=== PATIENT | male | born 1935 | race Caucasian/White ===

== ENCOUNTER 2019-10-25 11:58 | Inpatient (IN) | payer OTHER ==
[~2019-10-25] VITALS: Ht 193 cm; Wt 89.8 kg
[2019-10-26] MEDS ORDERED: PHENYLEPHRINE HCL 10 MG/ML VIAL (NEOSYNEPHRINE) IV ONE (07:30)
[2019-10-26] MEDS ORDERED: POTASSIUM CHLORIDE 20 MEQ TAB.PRT.SR PO ONE (07:30)
[2019-10-26] MEDS ORDERED: WATER FOR IRRIGATION,STERILE 1,000 ML IRRIG.SOLN IR ONE (07:30)
[2019-10-26] MEDS ORDERED: NS 1000 ML IV.SOLN IV ONE ×2 (07:30→13:31)
[2019-10-26] MEDS ORDERED: PROPOFOL 200MG/ 20ML VIAL (DIPRIVAN) IV ONE ×2 (07:30→13:31)
--- NOTE | 2019-10-26 12:20 | NUR ---
Direct admit notes From home via ambulance accompanied by the healthcare representative , with a chief complaint of urine infection , alert oriented x3 hard of hearing , vitals sign within normal limit ,came in with ruby catheter, denies any pain , oriented to room , policy , safety/fall precaution initiated , needs attended.
[2019-10-26 12:43] VITALS: BP_SYST 126
[2019-10-26] MEDS ORDERED: PHEN100C4 PO (12:43)
[2019-10-26] MEDS ORDERED: ASPI-1155 PO (12:43)
[2019-10-26] MEDS ORDERED: XALEYE BOTH EYES (12:47)
--- NOTE | 2019-10-26 12:50 | NUR ---
Paged DR. Mederos for admission order., left a message
--- NOTE | 2019-10-26 13:25 | NUR ---
PAGED DR SANTILLAN FOR ORDERS [phone] S/W JEANETTE EXCHANGE
[2019-10-26] MEDS ORDERED: FLUCONAZOLE IV ONE (13:31)
[2019-10-26] MEDS ORDERED: NS IRRIG SOLN 1000 ML IR ONE (13:31)
[2019-10-26] MEDS ORDERED: CEFAZOLIN 2 GM IVPB PREMIX 50 ML IV ONE (13:31)
[2019-10-26] MEDS ORDERED: NS IV ONE (13:31)
--- NOTE | 2019-10-26 14:24 | NUR ---
IV PLACEMENT: # 22 gauge angiocath placed to LEFT FORE ARM. Use of asceptic technique. Opsite placed over site. Blood return noted. Flushed with 10 cc of normal saline. No evidence of infiltration noted. Patient tolerated WELL.
--- NOTE | 2019-10-26 15:03 | NUR ---
CONSULTATION PAGED/CALLED Reason for Consultation: [] RENAL FAILURE Person Who was Notified: [] BETINA Consulting Physician: [] DR TAYLOR MUSEUM EXHIBIT TECHNICIAN FOR DR CARROLL Senior Asic Engineer Specialty: [] NEPHROLOGY Ordering Physician: [] DR SANTILLAN
--- NOTE | 2019-10-26 15:06 | NUR ---
CONSULTATION PAGED/CALLED Reason for Consultation: [] UTI Person Who was Notified: [] JANINA Consulting Physician: [] DR MARK RODRIGUEZ [employer] Art Teacher Specialty: [] ID Ordering Physician: [] DR SANTILLAN
--- NOTE | 2019-10-26 15:07 | NUR ---
CONSULTATION PAGED/CALLED Reason for Consultation: [] BPH Person Who was Notified: [] JANINA Consulting Physician: [] DR ARMANI CHAMORRO Flight Test Engineer Specialty: [] UROLOGIST Ordering Physician: [] DR SANTILLAN
[2019-10-26 15:19] LABS: BASOPHILS % (AUTO) 0.7 % (0.0-2.0); EOSINOPHILS # (AUTO) 0.2 K/uL (0.0-0.4); EOSINOPHILS % (AUTO) 4.4 % (0.0-4.0); HEMOGLOBIN 13.4 g/dL (14.0-18.0); LYMPHOCYTES # (AUTO) 1.5 K/uL (1.0-5.5); LYMPHOCYTES % (AUTO) 27.5 % (20.5-51.5); MEAN CORPUSCULAR HEMOGLOBIN 34 pg (27-31); MEAN CORPUSCULAR HGB CONC 34 % (32-36); MEAN CORPUSCULAR VOLUME 101 fL (79.0-98.0); MONOCYTES # (AUTO) 0.3 K/uL (0.0-1.0); MONOCYTES % (AUTO) 5.4 % (1.7-9.3); NEUTROPHILS # (AUTO) 3.3 K/uL (1.8-7.7); PLATELET COUNT (AUTO) 210 K/uL (130-430); RED BLOOD CELL COUNT(AUTO) 3.95 MIL/uL (4.2-6.2); RED CELL DISTRIBUTION WIDTH 14.4 % (9.0-15.0); WHITE BLOOD COUNT (AUTO) 5.3 K/uL (4.8-10.8)
[2019-10-26 15:35] LABS: ALANINE AMINOTRANSFERASE 35 U/L (12-78); ALBUMIN 2.9 g/dL (3.4-4.8); ANION GAP 7 (5-15); ASPARTATE AMINOTRANSFERASE 24 U/L (10-37); CALCIUM 8.5 mg/dL (8.4-11.0); CHLORIDE 99 mmol/L (98-107); CREATININE 0.93 mg/dL (0.55-1.30); GLUCOSE 132 mg/dL (70-99); POTASSIUM 3.8 mmol/L (3.5-5.1); SODIUM SERUM 133 mmol/L (136-145); TOTAL BILIRUBIN 0.4 mg/dL (0.0-1.0); UREA NITROGEN, BLOOD 23 mg/dL (8-21)
[2019-10-26 15:45] VITALS: BP_SYST 126
[2019-10-26] MEDS: PHENYTOIN 100 MG CAPSULE PO SCH ×2 (15:57→20:42)
--- NOTE | 2019-10-26 16:23 | NUR ---
HANSEN CATH changed # 16 FR Hansen catheter with 10 cc bulb inserted with use of sterile technique. Bulb inflated with 10 cc sterile water. Immediate return of 10 cc of cloudy urine urine noted. Bedside drainage bag placed below level of bladder. Urine sample collected and sent to lab. Pt tolerated procedure well.
--- NOTE | 2019-10-26 16:53 | NUR ---
Seen and examined by the urologist DR. Beach.
[2019-10-26 17:33] LABS: BILIRUBIN,URINE NEGATIVE (NEGATIVE); BLOOD, URINE 3+ (NEGATIVE); CLARITY/URINE SL CLOUDY (CLEAR); COLOR,URINE YELLOW (YELLOW); GLUCOSE,URINE NEGATIVE (NEGATIVE); KETONES,URINE NEGATIVE (NEGATIVE); LEUKOCYTE ESTERASE ,URINE 3+ (NEGATIVE); NITRITE, URINE POSITIVE (NEGATIVE); PH,URINE 7.5 (5.0-8.0); PROTEIN URINE 2+ (NEGATIVE)
[2019-10-26 17:42] LABS: RBC,URINE 20-50 /HPF (0-3)
[2019-10-26 17:43] LABS: BACTERIA,URINE MODERATE /HPF (None Seen); MUCUS,URINE None Seen /LPF (None Seen); WBC,URINE 80-100 /HPF (0-3)
[2019-10-26] MEDS: LEVOFLOXACIN 250 MG/D5W 50 ML IV SCH (18:15)
--- NOTE | 2019-10-26 18:57 | NUR ---
Urinalysis completed ,Due antibiotic given with out adverse reaction.
--- NOTE | 2019-10-26 19:10 | NUR ---
initial notes: pt is on bed, alert, awake, oriented to his name and birthday, don't where he is. pt don't known the date. no pain. not distress, afebrile. vital sign are with in normal limit. room air. pt has saline lock to left forearm gauge 22-intact and patent. ruby catheter draing by gravity to yellow urine.- change today by day rn. no skin issue. client care specialist at bedside. explain plan of care. safety to pt's client care specialist. verbalized understanding. needs attended. call light in reach, side rails up. low bed position and lock, bed alarm on. will follow-up.
[2019-10-26 20:33] VITALS: BP_SYST 123
[2019-10-26] MEDS: LATANOPROST 2.5 ML DROPS (XALATAN) BOTH EYES SCH (20:43)
--- NOTE | 2019-10-26 21:25 | NUR ---
seen by dr. lozano at bedside.
--- NOTE | 2019-10-26 22:16 | NUR ---
pt is awake, alert. no distress. stable. needs attended. life care planner at bedside. will follow-up.
--- NOTE | 2019-10-27 | NUR ---
sleeping, comfortable. no pain. no sob. stable, safety on. bed alarm on. career development coordinator at bedside. will follow-up.
[2019-10-27 00:45] VITALS: BP_SYST 129
--- NOTE | 2019-10-27 02:30 | NUR ---
sleeping, no acute distress. no sign of pain. stable. youth care professional at bedside. will follow-up.
--- NOTE | 2019-10-27 04:30 | NUR ---
pt is awake. confused, no pain. not distress. check pt if soiled, pt is clean, reposition. needs attended. caregiver at bedside. padded rails up. bed alarm on. will follow-up
--- NOTE | 2019-10-27 06:00 | NUR ---
sleeping, no acute distress. no sign of pain. stable. safety on.personal care service provider at bedside. will follow-up.
--- NOTE | 2019-10-27 07:07 | NUR ---
closing: pt is awake, alert. confused. no pain. stable. iv lock intact. ruby catheter draining. resident care technician at the bedside. bedside report given to am rn.
[2019-10-27] MEDS: PHENYTOIN 100 MG CAPSULE PO SCH ×3 (08:15→20:32)
[2019-10-27] MEDS: ASPIRIN 81 MG TAB.CHEW PO SCH (08:15)
--- NOTE | 2019-10-27 08:15 | NUR ---
Patient awake/alert oriented x3 hard of hearing forgetful at times , urine output clear yellow with sediments,encouraged patient to increase oral fluid intake verbalized understanding.,needs attended.
[2019-10-27] MEDS: LEVOFLOXACIN 250 MG/D5W 50 ML IV SCH (08:16)
[2019-10-27 08:28] LABS: BASOPHILS % (AUTO) 0.9 % (0.0-2.0); EOSINOPHILS # (AUTO) 0.3 K/uL (0.0-0.4); EOSINOPHILS % (AUTO) 6.3 % (0.0-4.0); HEMATOCRIT 37.6 % (36-54); HEMOGLOBIN 12.8 g/dL (14.0-18.0); LYMPHOCYTES # (AUTO) 1.6 K/uL (1.0-5.5); LYMPHOCYTES % (AUTO) 29.9 % (20.5-51.5); MEAN CORPUSCULAR HEMOGLOBIN 34 pg (27-31); MEAN CORPUSCULAR HGB CONC 34 % (32-36); MEAN CORPUSCULAR VOLUME 101 fL (79.0-98.0); MONOCYTES # (AUTO) 0.4 K/uL (0.0-1.0); MONOCYTES % (AUTO) 7.3 % (1.7-9.3); NEUTROPHILS # (AUTO) 2.9 K/uL (1.8-7.7); NEUTROPHILS % (AUTO) 55.6 % (40.0-70.0); PLATELET COUNT (AUTO) 199 K/uL (130-430); RED BLOOD CELL COUNT(AUTO) 3.72 MIL/uL (4.2-6.2); RED CELL DISTRIBUTION WIDTH 14.2 % (9.0-15.0); WHITE BLOOD COUNT (AUTO) 5.3 K/uL (4.8-10.8)
[2019-10-27 08:43] LABS: ALANINE AMINOTRANSFERASE 25 U/L (12-78); ALBUMIN 2.5 g/dL (3.4-4.8); ANION GAP 5 (5-15); ASPARTATE AMINOTRANSFERASE 20 U/L (10-37); CALCIUM 8.1 mg/dL (8.4-11.0); CHLORIDE 101 mmol/L (98-107); GLUCOSE 111 mg/dL (70-99); POTASSIUM 4.1 mmol/L (3.5-5.1); SODIUM SERUM 134 mmol/L (136-145); TOTAL BILIRUBIN 0.5 mg/dL (0.0-1.0); UREA NITROGEN, BLOOD 19 mg/dL (8-21)
[2019-10-27 09:20] VITALS: BP_SYST 118
--- NOTE | 2019-10-27 09:48 | NUR ---
Nutrition Update Ethan Scale 18 noted. Pt admitted for complicated UTI Diet: regular, mechanical soft BMI: 24.1 kg/m2 RD to follow per nutrition care standards.
--- NOTE | 2019-10-27 11:06 | NUR ---
PATIENT RESTING: Patient resting quietly. No acute distress noted. Vital signs within normal range.
[2019-10-27 11:16] VITALS: BP_SYST 117
--- NOTE | 2019-10-27 14:30 | NUR ---
Patient repositioned by staff every 2 hours with pillow support., family at the bedside.
[2019-10-27 15:42] VITALS: BP_SYST 112
--- NOTE | 2019-10-27 19:15 | NUR ---
Endorsed patient to date night caregiver , patient very pleasant denies any discomfort.
--- NOTE | 2019-10-27 19:20 | NUR ---
OPENING NOTE RECEIVED CARE OF PT AND SBAR REPORT. PT IS AAOX2, PLEASANTLY CONFUSED, SITTING UP IN BED. PT HAS CAREGIVER AT BEDSIDE. BREATHING IS UNLABORED TO ROOM AIR. NO S/S OF ACUTE DISTRESS. PT DENIES PAIN OR DISCOMFORT. F/C IS INTACT AND DRAINING TO GRAVITY. PT ORIENTED TO USE OF CALL LIGHT AND ENCOURAGED TO CALL FOR ANY ASSISTANCE. SAFETY PRECAUTIONS ARE IN PLACE: BED IS LOCKED IN LOWEST POSITION, SIDE RAILS UP X3, CALL LIGHT IS WITH PT, BED ALARM IS ON. WILL MONITOR.
[2019-10-27 20:00] VITALS: BP_SYST 127
[2019-10-27] MEDS: LATANOPROST 2.5 ML DROPS (XALATAN) BOTH EYES SCH (20:32)
--- NOTE | 2019-10-27 20:32 | NUR ---
MEDICATION PASS SCHEDULED MEDICATIONS ADMINISTERED ORDERED. MEDICATIONS AND POTENTIAL SIDE EFFECTS DISCUSSED, PT CONFUSED. NO S/S OF ACUTE DISTRESS. CAREGIVER IS AT BEDSIDE. SAFETY AND FALL PRECAUTIONS MAINTAINED. WILL MONITOR.
--- NOTE | 2019-10-27 22:15 | NUR ---
RESTING PT RESTING IN BED WITH EYES CLOSED. VISIBLE SYMMETRICAL RISE AND FALL OF CHEST. BREATHING IS UNLABORED TO ROOM AIR. SKIN IS WARM AND DRY TO TOUCH. PT'S CAREGIVER IS AT BEDSIDE. SAFETY AND FALL PRECAUTIONS ARE IN PLACE. WILL MONITOR.
--- NOTE | 2019-10-28 00:05 | NUR ---
SLEEPING PT SLEEPING IN BED WITH EYES CLOSED. BREATHING IS UNLABORED TO ROOM AIR. SKIN WARM AND DRY TO TOUCH. NO SIGN OF PAIN OR DISCOMFORT. F/C IS DRAINING TO GRAVITY. NO S/S OF ACUTE DISTRESS. PT'S CAREGIVER IS AT BEDSIDE. SAFETY PRECAUTIONS ARE IN PLACE. WILL MONITOR.
[2019-10-28 00:42] VITALS: BP_SYST 128
--- NOTE | 2019-10-28 02:15 | NUR ---
RN NOTE: NO S/S OF ACUTE DISTRESS. NO SIGN OF PAIN OR DISCOMFORT. BREATHING UNLABORED. SAFETY MAINTAINED. WILL MONITOR.
--- NOTE | 2019-10-28 04:12 | NUR ---
RN ROUNDS: NO S/S OF ACUTE DISTRESS. NO SIGN OF PAIN OR DISCOMFORT. BREATHING UNLABORED. SAFETY MAINTAINED. WILL MONITOR.
--- NOTE | 2019-10-28 06:55 | NUR ---
CLOSING NOTE PT IS AWAKE AND ALERT, PLEASANTLY CONFUSED, SITTING UP IN BED. PT HAS CAREGIVER AT BEDSIDE. BREATHING IS UNLABORED TO ROOM AIR. NO S/S OF ACUTE DISTRESS. PT DENIES PAIN OR DISCOMFORT. F/C IS INTACT AND DRAINING TO GRAVITY. SAFETY PRECAUTIONS ARE IN PLACE: BED IS LOCKED IN LOWEST POSITION, SIDE RAILS UP X3, CALL LIGHT IS WITH PT, BED ALARM IS ON. CARE ENDORSED TO JAMES TREVIÑO.
[2019-10-28 07:43] VITALS: BP_SYST 112
--- NOTE | 2019-10-28 07:44 | NUR ---
Patient awake/alert slept well last night as verbalized, no complaint , urine output is much clear compare yesterday , encouraged to increase oral fluid intake ,provided at the bedside , plan of care discussed with patient and healthcare risk control consultant verbalized understanding , needs attended.
[2019-10-28] MEDS: LEVOFLOXACIN 250 MG/D5W 50 ML IV SCH (08:11)
[2019-10-28] MEDS: PHENYTOIN 100 MG CAPSULE PO SCH ×3 (08:11→20:10)
[2019-10-28] MEDS: ASPIRIN 81 MG TAB.CHEW PO SCH (08:11)
[2019-10-28 11:15] VITALS: BP_SYST 116
--- NOTE | 2019-10-28 14:00 | NUR ---
Constipation No bowel movement since admission , bowel sound positive , kept on oral/IV hydration, will monitor.
[2019-10-28] MEDS: NACL 0.9% 1,000 ML IV SCH (14:12)
[2019-10-28] MEDS ORDERED: DOCUSATE SODIUM 250 MG CAPSULE PO ONE (14:15)
--- NOTE | 2019-10-28 15:00 | NUR ---
Patient repositioned by staff every 2 hours with pillow support.
[2019-10-28 15:06] VITALS: BP_SYST 124
--- NOTE | 2019-10-28 19:22 | NUR ---
OPENING NOTE RECEIVED CARE OF PT AND SBAR REPORT. PT IS AAOX2, PLEASANTLY CONFUSED, SITTING UP IN BED. PT IS ABLE TO VERBALIZE NEEDS. PT HAS CAREGIVER AT BEDSIDE. BREATHING IS UNLABORED TO ROOM AIR. NO S/S OF ACUTE DISTRESS. PT DENIES PAIN OR DISCOMFORT. F/C IS INTACT AND DRAINING TO GRAVITY. IVF ARE INFUSING AT ORDERED RATE. PT ORIENTED TO USE OF CALL LIGHT AND ENCOURAGED TO CALL FOR ANY ASSISTANCE. SAFETY PRECAUTIONS ARE IN PLACE: BED IS LOCKED IN LOWEST POSITION, SIDE RAILS UP X3, CALL LIGHT IS WITH PT, BED ALARM IS ON. WILL MONITOR.
[2019-10-28 20:00] VITALS: BP_SYST 114
[2019-10-28] MEDS: LATANOPROST 2.5 ML DROPS (XALATAN) BOTH EYES SCH (20:10)
[2019-10-28] MEDS: DOCUSATE SODIUM 250 MG CAPSULE PO SCH (20:11)
--- NOTE | 2019-10-28 22:22 | NUR ---
IV RE-INSERTION: IV PULLED OUT. Restarted on LEFT FOREARM BY HUDSON FRANCOIS. PT TOLERATED WELL. Resumed current IVF AT ORDERED RATE. Will observe for any signs of infiltration.
--- NOTE | 2019-10-29 00:20 | NUR ---
SLEEPING PT SLEEPING IN BED WITH EYES CLOSED. BREATHING IS UNLABORED TO ROOM AIR. SKIN WARM AND DRY TO TOUCH. NO SIGN OF PAIN OR DISCOMFORT. F/C IS DRAINING TO GRAVITY. IVF ARE INFUSING ORDERED. NO S/S OF ACUTE DISTRESS. PT'S CAREGIVER IS AT BEDSIDE. SAFETY PRECAUTIONS ARE IN PLACE. WILL MONITOR.
[2019-10-29 00:57] VITALS: BP_SYST 112
--- NOTE | 2019-10-29 02:15 | NUR ---
RN NOTE: PT SLEEPING IN BED WITH EYES CLOSED. BREATHING IS UNLABORED TO ROOM AIR. SKIN WARM AND DRY TO TOUCH. NO SIGN OF PAIN OR DISCOMFORT. IVF INFUSING ORDERED. F/C IS DRAINING TO GRAVITY. NO S/S OF ACUTE DISTRESS. PT'S CAREGIVER IS AT BEDSIDE. SAFETY PRECAUTIONS ARE IN PLACE. WILL MONITOR.
--- NOTE | 2019-10-29 04:19 | NUR ---
RN ROUNDS: PT RESTING IN BED WITH EYES CLOSED, APPEARS TO BE SLEEPING. BREATHING IS UNLABORED TO ROOM AIR. SKIN WARM AND DRY TO TOUCH. NO SIGN OF PAIN OR DISCOMFORT. F/C IS DRAINING TO GRAVITY. IVF ARE INFUSING ORDERED. NO S/S OF ACUTE DISTRESS. PT'S CAREGIVER IS AT BEDSIDE. SAFETY PRECAUTIONS ARE IN PLACE. WILL MONITOR.
--- NOTE | 2019-10-29 06:45 | NUR ---
CLOSING NOTE PT IS AWAKE AND ALERT, PLEASANTLY CONFUSED, SITTING UP IN BED. PT HAS CAREGIVER AT BEDSIDE. BREATHING IS UNLABORED TO ROOM AIR. NO S/S OF ACUTE DISTRESS. PT DENIES PAIN OR DISCOMFORT. F/C IS INTACT AND DRAINING TO GRAVITY. SAFETY PRECAUTIONS ARE IN PLACE: BED IS LOCKED IN LOWEST POSITION, SIDE RAILS UP X3, CALL LIGHT IS WITH PT, BED ALARM IS ON. WILL ENDORSE CARE TO DAY SHIFT RN.
[2019-10-29 07:37] VITALS: BP_SYST 118
[2019-10-29] MEDS: PHENYTOIN 100 MG CAPSULE PO SCH ×3 (08:01→21:15)
[2019-10-29] MEDS: DOCUSATE SODIUM 250 MG CAPSULE PO SCH ×2 (08:01→21:16)
[2019-10-29] MEDS: LEVOFLOXACIN 250 MG/D5W 50 ML IV SCH (08:01)
[2019-10-29] MEDS: ASPIRIN 81 MG TAB.CHEW PO SCH (08:01)
[2019-10-29] MEDS: NACL 0.9% 1,000 ML IV SCH (08:02)
[2019-10-29 08:27] LABS: BASOPHILS % (AUTO) 0.8 % (0.0-2.0); EOSINOPHILS # (AUTO) 0.4 K/uL (0.0-0.4); EOSINOPHILS % (AUTO) 7.5 % (0.0-4.0); HEMATOCRIT 38.5 % (36-54); LYMPHOCYTES # (AUTO) 1.5 K/uL (1.0-5.5); MEAN CORPUSCULAR HEMOGLOBIN 34 pg (27-31); MEAN CORPUSCULAR HGB CONC 34 % (32-36); MEAN CORPUSCULAR VOLUME 100 fL (79.0-98.0); MONOCYTES # (AUTO) 0.3 K/uL (0.0-1.0); MONOCYTES % (AUTO) 5.2 % (1.7-9.3); NEUTROPHILS # (AUTO) 3.3 K/uL (1.8-7.7); NEUTROPHILS % (AUTO) 59.5 % (40.0-70.0); PLATELET COUNT (AUTO) 234 K/uL (130-430); RED BLOOD CELL COUNT(AUTO) 3.84 MIL/uL (4.2-6.2); RED CELL DISTRIBUTION WIDTH 14.6 % (9.0-15.0); WHITE BLOOD COUNT (AUTO) 5.5 K/uL (4.8-10.8)
[2019-10-29 08:35] LABS: ALANINE AMINOTRANSFERASE 28 U/L (12-78); ALBUMIN 2.7 g/dL (3.4-4.8); ANION GAP 5 (5-15); ASPARTATE AMINOTRANSFERASE 22 U/L (10-37); CALCIUM 8.1 mg/dL (8.4-11.0); CHLORIDE 100 mmol/L (98-107); CREATININE 0.82 mg/dL (0.55-1.30); GLUCOSE 105 mg/dL (70-99); POTASSIUM 3.8 mmol/L (3.5-5.1); SODIUM SERUM 134 mmol/L (136-145); TOTAL BILIRUBIN 0.4 mg/dL (0.0-1.0); UREA NITROGEN, BLOOD 18 mg/dL (8-21)
--- NOTE | 2019-10-29 09:45 | NUR ---
Mobility Up with the physical therapy using FWW , generalized weakness, mild dizziness,walked till door, back to bed.,repositioned.
[2019-10-29 12:17] VITALS: BP_SYST 102
--- NOTE | 2019-10-29 12:24 | NUR ---
Patient repositioned by staff every 2 hours with pillow support, high fowlers ready for lunch.
--- NOTE | 2019-10-29 13:45 | NUR ---
SS NOTE: OVERHAULER was referred by CM to see patient for DCP. Demographic information updated (person to notify: Masoud Mcmanus Jr @ [phone], son and Person to Notify: Kaylene Barrow, sister, @ [phone]). OVERHAULER met with pt at bedside with his caregiver Balbina little. Pt was alert and oriented and has a hard time hearing. Pt appeared to be well-groomed, good eye contact, appropriate affect and soft speech. Pt is a 84 y/o male who came in from home. Pt lives in a one rika home with 3 steps to get to the front door but has a ramp to use. Caregiver Balbina stated pt is dependent on his ADL's; cooking, bathing, driving and ambulating. Balbina stated pt owns a walker, wheelchair, bedside commode, and hospital bed. Balbina states she lives in the patient's home and cares for him 12 hrs/day. Balbina states, he normally does not call for her when asleep. Balbina states pt was diagnosed with dementia not too long ago. Balbina langley have been using [facility] and was just recently discharged from there. Per ADRIEN Maurcie, if patient is to go back to home health, they would want to utilize [facility] again. No further social work nurse identified at this time but will remain available for resources.
--- NOTE | 2019-10-29 16:04 | NUR ---
Patient wake denies any pain or discomfort , repositioned.
--- NOTE | 2019-10-29 17:20 | NUR ---
Pagemk Givens for urine culture results. Addendum: 10/29/19 at 1801 by Jyoti Og RN Spoke to DR. Givens with n.o carried out kept on contact isolation proteus mirabilis MDRO of the urine , child care center assistant director instructed on proper handwashing verbalized understanding.
[2019-10-29] MEDS ORDERED: GENTAMICIN SULFATE IV SCH (18:00)
[2019-10-29] MEDS ORDERED: NS IV SCH (18:00)
[2019-10-29 18:18] VITALS: BP_SYST 122
--- NOTE | 2019-10-29 19:25 | NUR ---
CHANGE OF SHIFT; pt. awake, alert, [place], with caregiver at bedside. observed on contact isolation for MDRO urine, ruby cath to OSD. will reassess later. on fall risk precautions.
--- NOTE | 2019-10-29 19:50 | NUR ---
NOTES: pt. to CT Scan of abdomen and pelvis via bed, awake and alert in stable condition.
--- NOTE | 2019-10-29 20:15 | NUR ---
NOTES: pt. back from CT scan, settled in bed and repositioned.
[2019-10-29 21:00] VITALS: BP_SYST 111
--- NOTE | 2019-10-29 21:00 | NUR ---
NOTES: IVF resume, IV site reddened, skin fragile, skin discoloration and some bruising on upper arms, small vein noted, will try to restart another IV site, able to move extremities. VS checked. repositioned self for comfort. call light at bedside. caregiver will stay all night.
[2019-10-29] MEDS: LATANOPROST 2.5 ML DROPS (XALATAN) BOTH EYES SCH (21:16)
--- NOTE | 2019-10-29 22:53 | NUR ---
NOTES: pt. resting when checked, no complaints manifested.
[2019-10-30 00:30] VITALS: BP_SYST 90
--- NOTE | 2019-10-30 00:30 | NUR ---
NOTES: made rounds and pt. sleeping. caregiver at bedside.
--- NOTE | 2019-10-30 03:05 | NUR ---
NOTES: condition unchanged, continue to monitor.
--- NOTE | 2019-10-30 05:00 | NUR ---
NOTES; partial am care done, changed gown. able to help turn . no complaints noted. went back to sleep.
--- NOTE | 2019-10-30 06:17 | NUR ---
CLOSING NOTES; pt. still sleeping with caregiver at bedside. no distress. IVF infusing, ruby cath to osd. observed contact isolation for MDRO urine. for further care and assistance. on fall risk precaution. risk for fall and seizure precautions. will endorse to day shift.
--- NOTE | 2019-10-30 07:50 | NUR ---
opening note patient is resting in bed, caregiver at the bedside, educated soil fertility extension specialist light system and plan of care, patient verbalized understanding, no signs of distress at this time, IV site secured with IVF running and patient is tolerating well, no other needs addressed at this time, brake armed, bed alarm on, side rails up, call light within reach, fall/safety and contact precautions in place, ruby in place.
[2019-10-30 08:00] VITALS: BP_SYST 113
[2019-10-30] MEDS: DOCUSATE SODIUM 250 MG CAPSULE PO SCH ×2 (08:41→20:04)
[2019-10-30] MEDS: PHENYTOIN 100 MG CAPSULE PO SCH ×3 (08:41→20:04)
[2019-10-30] MEDS: NACL 0.9% 1,000 ML IV SCH (08:41)
[2019-10-30] MEDS: ASPIRIN 81 MG TAB.CHEW PO SCH (08:41)
--- NOTE | 2019-10-30 10:00 | NUR ---
rounds patient is resting in bed, caregiver at the bedside, watching tv, no signs of distress at this time, IVF running and patient tolerating well, no other needs addressed at this time, fall/safety precautions in place.
--- NOTE | 2019-10-30 12:20 | NUR ---
DC Planning Received call from Dr Mederos advised DC plan is likely tomorrow awaiting one more day of Gentamycin and to check renal function on new abx that is susceptible.
--- NOTE | 2019-10-30 12:30 | NUR ---
rounds patient is resting in bed, eating lunch, caregiver at the bedside, no signs of distress at this time, no needs addressed at this time, IVF running and patient tolerating well, fall/safety, contact, and seizure precautions in place.
[2019-10-30 12:44] VITALS: BP_SYST 112
--- NOTE | 2019-10-30 14:58 | NUR ---
rounds patient is resting in bed, caregiver in the room, watching tv, no signs of distress at this time, no needs addressed at this time, IVF running and patient tolerating well, fall/safety, seizure, and contact precautions in place.
--- NOTE | 2019-10-30 16:45 | NUR ---
rounds patient is resting in bed, caregiver in the room, watching tv, no signs of distress at this time, just asked for more water, no needs addressed at this time, IVF running and patient tolerating well, fall/safety, seizure, and contact precautions in place.
[2019-10-30 16:52] VITALS: BP_SYST 116
[2019-10-30] MEDS: GENTAMICIN SULFATE 140 MG in NS 100 ML IV SCH (17:25)
--- NOTE | 2019-10-30 18:52 | NUR ---
closing note patient is resting in bed, caregiver at the bedside, IV site secured with IVF running and patient is tolerating well, no other needs addressed at this time, brake armed, bed alarm on, side rails up, call light within reach, fall/safety and contact precautions in place, ruby in place, will endorse report to noc shift nurse to continue with care, patient able to take medications hold, just needs nurse to put it in one by one in his mouth.
--- NOTE | 2019-10-30 19:30 | NUR ---
Initial Notes Received handoff report from offgoing nurse at the bedside. Patient is AAOx1, resting comfortably in bed. No SOB, no acute distress, no complaints of pain. IVF infusing per MD order, see eMAR for details. Bed is locked, lowest position, 2x side rails up, bed alarm is on. Call light is within reach. Encouraged patient to call for assistance. Caregiver currently at the bedside. Will continue with plan of care.
[2019-10-30 20:00] VITALS: BP_SYST 110
[2019-10-30] MEDS: LATANOPROST 2.5 ML DROPS (XALATAN) BOTH EYES SCH (20:04)
--- NOTE | 2019-10-30 21:49 | NUR ---
Initial Notes Received handoff report from offgoing nurse at the bedside. Patient is AAOx1, resting comfortably in bed. No SOB, no acute distress, no complaints of pain. IVF infusing per MD order, see eMAR for details. Bed is locked, lowest position, 2x side rails up, bed alarm is on. Call light is within reach. Encouraged patient to call for assistance. Caregiver currently at the bedside. Will continue with plan of care. Addendum: 10/30/19 at 2150 by Anita iBrd RN ERROR* WRONG TIME
--- NOTE | 2019-10-30 21:50 | NUR ---
Patient currently resting comfortably in bed with eyes closed. Breathing even and unlabored with visible chest rise and fall noted. No SOB, no acute distress, no signs of pain or facial grimacing noted. Colon catheter draining via gravity. No Independent looping noted. Caregiver currently at the bedside. Addendum: 10/30/19 at 2152 by Anita Bird RN Correction* No DEPENDENT looping noted
[2019-10-31] MEDS: NACL 0.9% 1,000 ML IV SCH ×2 (00:16→22:20)
--- NOTE | 2019-10-31 00:27 | NUR ---
Patient confused, yelling at the caregiver. Patient states that he soiled himself. Checked the patient, and the patient is clean and dry. Caregiver reassured patient and patient verbalized understanding. Now resting comfortably in bed. Encouraged to call for assistance.
[2019-10-31 00:39] VITALS: BP_SYST 111
--- NOTE | 2019-10-31 02:37 | NUR ---
Patient resting comfortably in bed, eyes closed. Breathing even and unlabored with visible chest rise and fall noted. No SOB, no acute distress, no signs of pain or facial grimacing noted. Bed is locked, lowest position, 2x siderails up, bed alarm is on. Call light is within reach. Fish Tender is sleeping at the bedside.
--- NOTE | 2019-10-31 04:27 | NUR ---
Patient resting comfortably in bed, eyes closed. Breathing even and unlabored, visible chest rise and fall noted. No SOB, no acute distress, no signs of pain or facial grimacing noted. Bed is locked, lowest position, 2x side rails up, bed alarm is on. Call light within reach. Caregiver at the bedside.
[2019-10-31] MEDS: GENTAMICIN SULFATE 140 MG in NS 100 ML IV SCH ×2 (05:16→18:02)
--- NOTE | 2019-10-31 06:49 | NUR ---
Closing Notes Patient is resting comfortably in bed, eyes closed. Breathing even and unlabored with visible chest rise and fall noted. No SOB, no acute distress, no signs of pain or facial grimacing noted. IVF infusing per MD order, see eMAR for details. Bed is locked, lowest position, 2x side rails up, bed alarm is on. Call light is within reach. Fall and safety precautions maintained. All needs have been met during this shift. Will endorse care to oncoming dayshift nurse.
--- NOTE | 2019-10-31 07:45 | NUR ---
opening note patient is resting in bed, caregiver at the bedside, educated credit card control clerk light system and plan of care, patient verbalized understanding, no signs of distress at this time, IV site secured with IVF running and patient is tolerating well, no other needs addressed at this time, brake armed, bed alarm on, side rails up, call light within reach, fall/safety and contact precautions in place, ruby in place.
[2019-10-31 08:05] VITALS: BP_SYST 118
[2019-10-31] MEDS: PHENYTOIN 100 MG CAPSULE PO SCH ×3 (08:37→22:21)
[2019-10-31] MEDS: DOCUSATE SODIUM 250 MG CAPSULE PO SCH ×2 (08:37→22:21)
[2019-10-31] MEDS: ASPIRIN 81 MG TAB.CHEW PO SCH (08:37)
--- NOTE | 2019-10-31 10:40 | NUR ---
rounds patient resting in bed, caregiver in the room, patient has eyes closed breathing easy and nonlabored, no signs of distress at this time, no needs addressed at this time, fall/safety, contact, and seizure precautions in place.
--- NOTE | 2019-10-31 11:42 | NUR ---
Dietitian Recommendations *Recommend Mechanical soft diet w/ Ensure Enlive TID. (ONS provides 1050 kcal and 60gm protein daily) *No hard to chew food items. Please see nutritional assessment for details. ROSE MARY, RD
[2019-10-31 12:07] VITALS: BP_SYST 107
--- NOTE | 2019-10-31 12:15 | NUR ---
rounds patient resting in bed, caregiver in the room, no signs of distress at this time, no needs addressed at this time, fall/safety, contact, and seizure precautions in place, patient going to eat his lunch.
--- NOTE | 2019-10-31 14:30 | NUR ---
rounds patient resting in bed, caregiver in the room, patient complaining of nausea, holding of on eating at this time, waiting for Dr Mederos to call back for orders, no needs addressed at this time, fall/safety, contact, and seizure precautions in place.
[2019-10-31] MEDS: ONDANSETRON HCL 4 MG/2 ML VIAL IVP PRN ×2 (15:14→22:33)
--- NOTE | 2019-10-31 16:00 | NUR ---
rounds patient resting in bed, caregiver in the room, patient complaining of nausea still and does not want to take any PO medications at this time, wants to wait until later tonight, no needs addressed at this time, fall/safety, contact, and seizure precautions in place.
[2019-10-31 16:03] VITALS: BP_SYST 128
--- NOTE | 2019-10-31 18:40 | NUR ---
closing note patient is resting in bed, caregiver at the bedside, IV site secured with IVF running and patient is tolerating well, no other needs addressed at this time, brake armed, bed alarm on, side rails up, call light within reach, fall/safety and contact precautions in place, ruby in place, will endorse report to [facility] shift nurse to continue with care, patient able to take medications hold, just needs nurse to put it in one by one in his mouth. Patient is still complaining of nausea, does not want to eat or take PO meds still at this time, will have noc shift nurse continue monitoring with this.
--- NOTE | 2019-10-31 19:00 | NUR ---
OPENING NOTES Patient awake, AOx4. Watching TV, with livestock caretaker at bedside. No signs of respiratory distress and discomfort noted. On Room air with O2 sat of 96%, tolerating well. IVF infusing well, patency noted. On Colon catheter, attached and secured, draining by gravity. On SCDs operating well. On contact precautions and seizure precautions, seizure pad in place. Call light within reach, patient educated to use call light when assistance is needed, patient verbalized understanding. Safety precautions in place. Bed locked and in lowest position. Bed alarm on. 2 side rails up. Will continue to monitor patient.
[2019-10-31 20:00] VITALS: BP_SYST 128
[2019-10-31] MEDS: LATANOPROST 2.5 ML DROPS (XALATAN) BOTH EYES SCH (22:21)
--- NOTE | 2019-10-31 22:21 | NUR ---
MED PASS/NAUSEA Due medication given at this time, patient tolerated well. No signs of respiratory distress. Denies pain at this time, but verbalized feeling nausea. PRN medication given for nausea. Safety precautions in place. Will continue to monitor patient.
[2019-10-31 23:53] VITALS: BP_SYST 110
--- NOTE | 2019-11-01 00:05 | NUR ---
RN ROUNDS Patient asleep at this time, caregiver sleeping at bedside. No signs of respiratory distress and discomfort noted. Breathing even and unlabored. HOB raised. SCD's operating well,. IVF infusing well. Safety precautions in place. call light within reach. Will continue to monitor patient.
--- NOTE | 2019-11-01 02:30 | NUR ---
RN ROUNDS Patient asleep at this time, caregiver sleeping at bedside. No signs of respiratory distress and discomfort noted. Breathing even and unlabored. SCD's operating well,. IVF infusing well. Safety precautions in place. Call light within reach. Will continue to monitor patient.
--- NOTE | 2019-11-01 04:47 | NUR ---
RN ROUNDS Patient asleep. No signs of respiratory distress and discomfort noted. Breathing even and unlabored. SCD's operating well,. IVF infusing well. Safety precautions in place. Call light within reach. Will continue to monitor patient.
[2019-11-01] MEDS: GENTAMICIN SULFATE 140 MG in NS 100 ML IV SCH ×2 (05:58→18:07)
--- NOTE | 2019-11-01 07:00 | NUR ---
CLOSING NOTES Patient awake with home care attendant at bedside. No signs of respiratory distress and discomfort noted. On Room air with O2 sat of 97%, tolerating well. IVF infusing well, patency noted. On Colon catheter, attached and secured, draining by gravity. On SCDs operating well. On contact precautions and seizure precautions, seizure pad maintained throughout the shift. Call light within reach. Bed locked and lowest position. Safety precautions in place. All needs met throughout the shift will endorse to oncoming nurse for continuity of care.
[2019-11-01 07:27] LABS: BASOPHILS % (AUTO) 0.5 % (0.0-2.0); EOSINOPHILS # (AUTO) 0.4 K/uL (0.0-0.4); EOSINOPHILS % (AUTO) 4.5 % (0.0-4.0); HEMATOCRIT 36.2 % (36-54); HEMOGLOBIN 12.6 g/dL (14.0-18.0); LYMPHOCYTES # (AUTO) 1.1 K/uL (1.0-5.5); LYMPHOCYTES % (AUTO) 14.8 % (20.5-51.5); MEAN CORPUSCULAR HEMOGLOBIN 35 pg (27-31); MEAN CORPUSCULAR HGB CONC 35 % (32-36); MEAN CORPUSCULAR VOLUME 100 fL (79.0-98.0); MONOCYTES # (AUTO) 0.3 K/uL (0.0-1.0); MONOCYTES % (AUTO) 4.3 % (1.7-9.3); NEUTROPHILS # (AUTO) 5.9 K/uL (1.8-7.7); NEUTROPHILS % (AUTO) 75.9 % (40.0-70.0); PLATELET COUNT (AUTO) 208 K/uL (130-430); RED BLOOD CELL COUNT(AUTO) 3.61 MIL/uL (4.2-6.2); RED CELL DISTRIBUTION WIDTH 14.4 % (9.0-15.0); WHITE BLOOD COUNT (AUTO) 7.8 K/uL (4.8-10.8)
--- NOTE | 2019-11-01 07:30 | NUR ---
INITIAL NOTE PT RESTING IN BED, NO ACUTE DISTRESS NOTED, BREATHING EVEN AND UNLABORED. IVF INFUSING WELL, HANSEN DRAINING TO GRAVITY. ISOLATION PRECAUTIONS IN PLACE. CALL LIGHT WITHIN REACH, BED IN LOW AND LOCKED POSITION WITH BED ALARM ON. FAMILY AT BEDSIDE.
[2019-11-01 07:55] LABS: ANION GAP 6 (5-15); CHLORIDE 102 mmol/L (98-107); SODIUM SERUM 135 mmol/L (136-145)
[2019-11-01 07:56] LABS: ALANINE AMINOTRANSFERASE 19 U/L (12-78); ALBUMIN 2.5 g/dL (3.4-4.8); ASPARTATE AMINOTRANSFERASE 15 U/L (10-37); CALCIUM 7.8 mg/dL (8.4-11.0); CREATININE 0.78 mg/dL (0.55-1.30); GLUCOSE 121 mg/dL (70-99); TOTAL BILIRUBIN 0.6 mg/dL (0.0-1.0); UREA NITROGEN, BLOOD 16 mg/dL (8-21)
[2019-11-01 08:00] VITALS: BP_SYST 112
--- NOTE | 2019-11-01 08:37 | NUR ---
P.T. NOTES UNABLE TO SEE PATIENT AT THIS TIME, PER CAREGIVER PATIENT HAS BEEN FEELING NAUSEOUS AND VOMITING SINCE LAST NIGHT.
--- NOTE | 2019-11-01 09:30 | NUR ---
MORNING MEDICATIONS PT TOOK MORNING MEDICATIONS. PT COMPLAINING OF DIFFICULTY DRINKING WATER DUE TO LATER THROWING IT UP. GAVE EMESIS BAG TO PT. PT WOULD LIKE TO REST AND TRY TO DRINK SOME WATER A LITTLE BIT LATER. WILL CONTINUE TO MONITOR.
[2019-11-01] MEDS: ASPIRIN 81 MG TAB.CHEW PO SCH (09:33)
[2019-11-01] MEDS: PHENYTOIN 100 MG CAPSULE PO SCH ×3 (09:33→21:14)
[2019-11-01] MEDS: DOCUSATE SODIUM 250 MG CAPSULE PO SCH ×2 (09:33→21:14)
--- NOTE | 2019-11-01 10:53 | NUR ---
Sheriffs Detective Note SPORTING GOODS SALESPERSON received a voicemail from patient's sister, Kaylene Barrow [phone], requesting a call back. Kaylene stated she was concerned that patient has been very nauseous and vomiting overnight. She fears this is a reaction to the current antibiotic and that patient will be dc'd while very sick. She stated she has been attempting to reach Dr Mederos for days but there is no room on the voicemail system. Explored if she would like to resume with patient's current home health agency. While she is not very happy with them, she decided it would be best to continue as it took so long for them to coordinated with [facility] for [facility] care. Discussed short term care with another agency could be begun here, but that eventually custodial home health would need to go through patient's PCP. Notified patient's nurse, Debbi, of Kaylene's concerns and request to speak with Dr Mederos.
[2019-11-01] MEDS: ONDANSETRON HCL 4 MG/2 ML VIAL IVP PRN ×2 (11:55→18:07)
--- NOTE | 2019-11-01 11:55 | NUR ---
NAUSEA/VOMITING PT COMPLAINING OF BEING UNABLE TO KEEP DOWN WATER OR FOOD. EDUCATED PT ON USE AND SIDE EFFECTS OF ZOFRAN. PT VERBALIZED UNDERSTANDING. PRN ZOFRAN INDICATED FOR NAUSEA ADMINISTERED. WILL CONTINUE TO MONITOR.
[2019-11-01 12:48] VITALS: BP_SYST 123
--- NOTE | 2019-11-01 13:30 | NUR ---
VOMITING PT CONTINUES TO HAVE DIFFICULTY KEEP ANYTHING DOWN. PT WILL TAKE SMALL SIPS OF WATER BUT STATES HE IS AFRAID TO TAKE ANYTHING BY MOUTH DUE TO THE NAUSEA. WILL PAGE DR. SANTILLAN.
--- NOTE | 2019-11-01 15:16 | NUR ---
SPOKE W/ DR. SANTILLAN SPOKE W/ MD VIA PHONE. INFORMED MD OF DAUGHTERS ANGEL FRANKS CONCERNS, MD AWARE AND SPOKE WITH DAUGHTER ALREADY. INFORMED MD THAT PT CONTINUES TO FEEL NAUSEA AND VOMITING EVEN WHEN GIVEN ZOFRAN, NEW ORDER FOR REGLAN RECEIVED BY MY VERIFIED WITH TELEPHONE READ BACK. MD TO TALK WITH INFECTIOUS DISEASE DOCTOR TO POSSIBLY CHANGE ANTIBIOTIC. PT WILL NOT BE DISCHARGED TODAY.
--- NOTE | 2019-11-01 15:30 | NUR ---
RN ROUNDS PT RESTING AT THIS TIME, NO ACUTE DISTRESS NOTED, BREATHING EVEN AND UNLABORED. WILL CONTINUE TO MONITOR.
[2019-11-01 16:53] VITALS: BP_SYST 126
--- NOTE | 2019-11-01 17:28 | NUR ---
RN ROUNDS PT AWAKE, PT DENIES ANY EPISODE OF VOMITING AT THIS TIME. PT DEMONSTRATED BEING ABLE TO TAKE SIPS OF WATER.
[2019-11-01] MEDS: NACL 0.9% 1,000 ML IV SCH (18:08)
--- NOTE | 2019-11-01 19:10 | NUR ---
OPENING NOTES Receive report from morning shift nurse. Patient awake, AOx1, with career information specialist at bedside, confusion noted. No signs of respiratory distress and discomfort noted. IVF infusing well, patency noted. On Colon catheter, attached and secured, draining by gravity. On SCDs operating well. On contact precautions and seizure precautions, seizure pad in place. Call light within reach, patient educated to use call light when assistance is needed, patient verbalized understanding. Safety precautions in place. Bed locked and in lowest position. Bed alarm on. 2 side rails up. Will continue to monitor patient.
--- NOTE | 2019-11-01 19:34 | NUR ---
CLOSING NOTE BEDSIDE SBAR REPORT GIVEN TO RECEIVING RN. PT AWAKE, NAUSEA CONTROLLED AT THIS TIME. IVF INFUSING WELL. HANSEN DRAINING TO GRAVITY. CALL LIGHT WITHIN REACH, BED IN LOW AND LOCKED POSITION WITH BED ALARM ON. CAREGIVER AT BEDSIDE. ISOLATION PRECAUTIONS IN PLACE. ALL NEEDS MET THROUGHOUT SHIFT. PT CARE ENDORSED TO PRESALES SENIOR SPECIALIST RN.
[2019-11-01 20:00] VITALS: BP_SYST 130
--- NOTE | 2019-11-01 20:10 | NUR ---
SPOKE WITH DR SANTILLAN/SEPSIS RISK made aware of patient O2 saturation of 89-90%, respiration 21 and HR 96 that triggered sepsis risk. gave new order. Ordered sepsis protocol. Will carry out. Addendum: 11/02/19 at 0124 by Karissa Pandya RN WRONG TIME: SPOKE WITH DR. SANTILLAN AT 11/01/19 7772
[2019-11-01] MEDS: LATANOPROST 2.5 ML DROPS (XALATAN) BOTH EYES SCH (21:14)
--- NOTE | 2019-11-01 21:14 | NUR ---
MED PASS Due medication given at this time, patient tolerated well. Patient 02 saturation was 89-90% on room air, confusion is noted. RN attached nasal cannula at 2L, charge nurse HUDSON Packer is aware. Will inform MD. Denies pain at this time, but verbalized discomfort. Safety precautions in place. Will continue to monitor patient.
[2019-11-01] MEDS ORDERED: NACL 0.9% 1,000 ML IV ONE (23:15)
[2019-11-01] MEDS: METOCLOPRAMIDE HCL 10 MG/2 ML VIAL IVP PRN (23:20)
[2019-11-01 23:58] VITALS: BP_SYST 126
[2019-11-02] MEDS ORDERED: IPRATROPIUM/ALBUTEROL SULFATE 3 ML AMPUL.NEB (DUONEB) INH PRN (01:15)
--- NOTE | 2019-11-02 01:24 | NUR ---
RN ROUNDS Patient awake and confusion noted verbalizing that ''there is fire''. Vital signs take 137/78 HR 97, O2 sat of 94 at 2L of oxygen via nasal cannula. Safety precautions in place. Will continue to monitor patient.
--- NOTE | 2019-11-02 02:50 | NUR ---
RN ROUNDS Patient asleep. No signs of respiratory distress and discomfort noted. Breathing even and unlabored. SCD's operating well,. Colon catheter draining by gravity. IVF infusing well. Safety precautions in place. Call light within reach. Will continue to monitor patient.
--- NOTE | 2019-11-02 04:30 | NUR ---
RN ROUNDS Patient asleep, with care transition manager at bedside. No signs of respiratory distress and discomfort noted. Breathing even and unlabored. SCD's operating well,. Colon catheter draining by gravity. IVF infusing well. Safety precautions in place. Call light within reach. Will continue to monitor patient.
[2019-11-02 04:36] VITALS: BP_SYST 126
[2019-11-02] MEDS: GENTAMICIN SULFATE 140 MG in NS 100 ML IV SCH (05:15)
--- NOTE | 2019-11-02 06:45 | NUR ---
LOSING NOTES Patient awake, confused is noted, with senior care manager at bedside. No signs of respiratory distress and discomfort noted. On 2L of oxygen via nasal cannula sat of 97%, tolerating well. IVF infusing well, patency noted. On Colon catheter, attached and secured, draining by gravity. On SCDs operating well. On contact precautions and seizure precautions, seizure pad maintained throughout the shift. Call light within reach. Bed locked and lowest position. Safety precautions in place. All needs met throughout the shift will endorse to oncoming nurse for continuity of care.
[2019-11-02 07:50] LABS: BASOPHILS # (AUTO) 0.1 K/uL (0.0-0.2); BASOPHILS % (AUTO) 0.7 % (0.0-2.0); EOSINOPHILS # (AUTO) 0.2 K/uL (0.0-0.4); HEMATOCRIT 34.5 % (36-54); HEMOGLOBIN 11.8 g/dL (14.0-18.0); LYMPHOCYTES # (AUTO) 1.3 K/uL (1.0-5.5); LYMPHOCYTES % (AUTO) 16.4 % (20.5-51.5); MEAN CORPUSCULAR HEMOGLOBIN 34 pg (27-31); MEAN CORPUSCULAR HGB CONC 34 % (32-36); MEAN CORPUSCULAR VOLUME 100 fL (79.0-98.0); MONOCYTES # (AUTO) 0.3 K/uL (0.0-1.0); MONOCYTES % (AUTO) 4.2 % (1.7-9.3); NEUTROPHILS # (AUTO) 6.2 K/uL (1.8-7.7); NEUTROPHILS % (AUTO) 76.7 % (40.0-70.0); PLATELET COUNT (AUTO) 219 K/uL (130-430); RED BLOOD CELL COUNT(AUTO) 3.44 MIL/uL (4.2-6.2); RED CELL DISTRIBUTION WIDTH 14.4 % (9.0-15.0); WHITE BLOOD COUNT (AUTO) 8.1 K/uL (4.8-10.8)
[2019-11-02 08:01] LABS: ANION GAP 7 (5-15); CALCIUM 7.5 mg/dL (8.4-11.0); CHLORIDE 103 mmol/L (98-107); CREATININE 0.79 mg/dL (0.55-1.30); GLUCOSE 104 mg/dL (70-99); POTASSIUM 3.6 mmol/L (3.5-5.1); SODIUM SERUM 135 mmol/L (136-145); UREA NITROGEN, BLOOD 14 mg/dL (8-21)
[2019-11-02] MEDS: METOCLOPRAMIDE HCL 10 MG/2 ML VIAL IVP PRN (08:28)
[2019-11-02] MEDS: LEVOFLOXACIN 250 MG TABLET PO SCH (10:05)
[2019-11-02] MEDS: DOCUSATE SODIUM 250 MG CAPSULE PO SCH ×2 (10:05→20:59)
[2019-11-02] MEDS: ASPIRIN 81 MG TAB.CHEW PO SCH (10:05)
[2019-11-02] MEDS: PHENYTOIN 100 MG CAPSULE PO SCH ×3 (10:05→21:00)
--- NOTE | 2019-11-02 10:32 | NUR ---
pt given po meds crushed with applesauce. after a few minutes, pt started to vomit with brownish emesis and clear phlegm. per pt's pcg at bedside, it started 3 days ago and pt has poor intake since. per pcg, pt complain of having something light blocking in his esophageal area. will inform md.
--- NOTE | 2019-11-02 10:45 | NUR ---
PAGED PAGED AT [phone] SPOKE WITH CHEN.
[2019-11-02 12:35] VITALS: BP_SYST 135
[2019-11-02] MEDS: NACL 0.9% 1,000 ML IV SCH (12:42)
[2019-11-02] MEDS ORDERED: METOCLOPRAMIDE HCL 10 MG/2 ML VIAL IVP PRN (14:15)
[2019-11-02] MEDS ORDERED: DEXTROSE 50% JECT 50 ML DISP.SYRIN IVP PRN (14:15)
[2019-11-02] MEDS ORDERED: *PPN PER PHARMACY XX PRN (14:15)
--- NOTE | 2019-11-02 14:16 | NUR ---
CONSULTATION PAGED REASON FOR CONSULTATION:POOR ORAL INTAKE COMPLAIN OF FEEDING BLOCK IN STOMACH WAS CONSULT CALLED?Y PERSON WHO WAS NOTIFIED:SANJAY CONSULTING PHYSICIAN:MEGAN CHRISTIAN NUT TAPPER SPECIALTY:PULMONARY NUT TAPPER PHONE NUMBER:[phone] ORDERING PHYSICIAN:CAMERON URBANO
--- NOTE | 2019-11-02 14:19 | NUR ---
CONSULTATION PAGED REASON FOR CONSULTATION:POOR ORAL INTAKE COMPLAIN OF FEEDING BLOCK IN STOMACH WAS CONSULT CALLED?Y PERSON WHO WAS NOTIFIED:NAILA CONSULTING PHYSICIAN:VILMA JOSHI TELEVISION SERVICE ENGINEER SPECIALTY:GI TELEVISION SERVICE ENGINEER PHONE NUMBER:[phone] ORDERING PHYSICIAN:CAMERON URBANO
--- NOTE | 2019-11-02 14:21 | NUR ---
LUDA WYATT SPOKE WITH NITA SPEECH THERAPIST FOR SWALLOW EVAL.
--- NOTE | 2019-11-02 15:35 | NUR ---
Discharge Planning: DCP faxed pt referral to [facility] [place] (f [phone] p [phone]) DCP to follow up
--- NOTE | 2019-11-02 15:59 | NUR ---
S.T. SWALLOW EVAL SWALLOW EVAL COMPLETED. PT PRESENTS W/ GENERALLY FUNCTIONAL OROPHARYNGEAL SWALLOW FOR PUREE AND THIN/THICK LIQUIDS. NO S/S OF ASPIRATION. C/O SEV CHEST PAIN W/ SWALLOW. SUSPECT ESOPHAGEAL DYSPHAGIA. REC: GI CONSULT. NURSE WOODARD STATED IT WAS ALREADY REQUESTED. WHEN MEDICALLY CLEARED, START WITH PUREE DIET. THIN LIQUIDS OK. NURSE WOODARD NOTIFIED. G8996 CK G8997 CK G8998 CK NOMS LEVEL 4
[2019-11-02 16:06] LABS: BILIRUBIN,URINE NEGATIVE (NEGATIVE); BLOOD, URINE 3+ (NEGATIVE); CLARITY/URINE SL CLOUDY (CLEAR); COLOR,URINE YELLOW (YELLOW); GLUCOSE,URINE NEGATIVE (NEGATIVE); KETONES,URINE 1+ (NEGATIVE); LEUKOCYTE ESTERASE ,URINE 2+ (NEGATIVE); NITRITE, URINE NEGATIVE (NEGATIVE); PH,URINE 5.5 (5.0-8.0); PROTEIN URINE 2+ (NEGATIVE)
[2019-11-02 16:17] LABS: BACTERIA,URINE MODERATE /HPF (None Seen); RBC,URINE >100 /HPF (0-3); WBC,URINE 50-80 /HPF (0-3)
[2019-11-02 16:18] LABS: MUCUS,URINE None Seen /LPF (None Seen); YEAST,URINE Few /HPF (None Seen)
[2019-11-02 16:52] VITALS: BP_SYST 130
[2019-11-02] MEDS ORDERED: IPRATROPIUM BROM 0.5 MG/2.5 ML VIAL.NEB (ATROVENT) INH PRN (18:00)
[2019-11-02] MEDS ORDERED: ALBUTEROL SULFATE 0.083% 2.5 MG/3 ML VIAL.NEB INH PRN (18:00)
--- NOTE | 2019-11-02 18:45 | NUR ---
DR SANTILLAN HERE AND SEEN PATIENT AND SPOKE WITH PT'S FAMILY AT BEDSIDE. ALSO SPOKE OVER THE PHONE WITH DR Nolan RODRIGUEZ.
--- NOTE | 2019-11-02 18:46 | NUR ---
CLOSING NOTES, PT HAS BEEN STABLE VITALS WEBBER AND NO FEVER. PT HAD SWALLOW EVAL. , GI CONSULT AND PULMO CONSULT. WILL ENDORSE TO NIGHT NURSE.
--- NOTE | 2019-11-02 19:20 | NUR ---
OPENING NOTES Late entry due to patient care. Bedside report received from dayshift nurse. Patient received lying in bed, awake, mumbling, confused. No s/s of acute distress noted. Breathing is even and unlabored. IVF infusing well, IV site patent, no signs of infiltration or infection noted. Skin warm and dry to touch, no signs of hypoglycemia noted. SCDs attached and operating. Colon attached, secured, and draining by gravity. Caregiver, Brooke, present at bedside. Call light with patient. Bed alarm on. Will continue to monitor.
[2019-11-02 20:00] VITALS: BP_SYST 138
[2019-11-02] MEDS: ALBUTEROL SULFATE 0.083% 2.5 MG/3 ML VIAL.NEB INH SCH (20:25)
[2019-11-02] MEDS: IPRATROPIUM BROM 0.5 MG/2.5 ML VIAL.NEB (ATROVENT) INH SCH (20:25)
[2019-11-02] MEDS ORDERED: LEVOFLOXACIN 250 MG/D5W 50 ML IV ONE (20:57)
[2019-11-02] MEDS: LATANOPROST 2.5 ML DROPS (XALATAN) BOTH EYES SCH (21:00)
[2019-11-02] MEDS ORDERED: LEVOFLOXACIN 250 MG/D5W 50 ML IV SCH (21:00)
--- NOTE | 2019-11-02 21:00 | NUR ---
MEDPASS/ACCUCHECK Scheduled medications administered at this time. Patient tolerated well. Accucheck done at this time, BS at 115, no coverage needed per PRN order. All needs met at this time. Call light with patient. Bed alarm on. Will continue to monitor.
--- NOTE | 2019-11-02 23:00 | NUR ---
ROUNDS Patient in bed sleeping at this time. No s/s of acute distress noted. Breathing even and unlabored. IVF infusing well. Call light with patient. Bed alarm on. Will continue to monitor.
[2019-11-03] MEDS: ALBUTEROL SULFATE 0.083% 2.5 MG/3 ML VIAL.NEB INH SCH ×4 (00:18→20:01)
[2019-11-03] MEDS: IPRATROPIUM BROM 0.5 MG/2.5 ML VIAL.NEB (ATROVENT) INH SCH ×4 (00:18→20:00)
--- NOTE | 2019-11-03 01:00 | NUR ---
ROUNDS Patient in bed sleeping comfortably at this time. No signs of discomfort noted. IVF infusing well. SCDs attached and operating. Colon attached, secured, and draining by gravity. Call light with patient. Bed alarm on. Will continue to monitor.
[2019-11-03 02:26] VITALS: BP_SYST 136
--- NOTE | 2019-11-03 03:00 | NUR ---
ROUNDS Patient in bed sleeping comfortably. No s/s of acute distress noted. Breathing even and unlabored. Call light with patient. Bed alarm on. Will continue to monitor.
--- NOTE | 2019-11-03 05:00 | NUR ---
ROUNDS Patient in bed sleeping at this time. No signs of discomfort noted. Chest rise and fall even bilaterally. Call light with patient. Will continue to monitor.
--- NOTE | 2019-11-03 06:31 | NUR ---
CLOSING NOTES Patient in bed awake, resting. NO s/s of acute distress noted. Breathing even and unlabored. HOB raised. IVF infusing well, IV site patent, no signs of infiltration or infection noted. Skin arm and dry to touch, no signs of hypoglycemia noted. Colon attached, secured, and draining by gravity. SCDs attached and operating. All needs met throughout shift. Fall, safety, and isolation precautions maintained throughout shift. Will continue to monitor until patient care is endorsed to oncoming dayshift nurse.
[2019-11-03 08:00] VITALS: BP_SYST 121
--- NOTE | 2019-11-03 08:00 | NUR ---
Patient received lying in bed, awake. On 2L O2, breathing is even and unlabored. IV on the left wrist, #22. Colon is draining pat urine by gravity. Caregiver, Brooke, present at bedside.Call light in place, bed locked at the lowest position, will continue to monitor.
[2019-11-03] MEDS: DOCUSATE SODIUM 250 MG CAPSULE PO SCH ×2 (08:54→21:00)
[2019-11-03] MEDS: PHENYTOIN 100 MG CAPSULE PO SCH ×3 (08:54→22:16)
[2019-11-03] MEDS: ASPIRIN 81 MG TAB.CHEW PO SCH (08:54)
[2019-11-03] MEDS: LEVOFLOXACIN 250 MG TABLET PO SCH (08:54)
[2019-11-03] MEDS: NACL 0.9% 1,000 ML IV SCH (09:06)
--- NOTE | 2019-11-03 09:10 | NUR ---
PATIENT C/O PAIN AFTER SWALLOWING 3 BITES OF YOGURT. WILL REASSESS.
[2019-11-03 09:11] LABS: ALANINE AMINOTRANSFERASE 16 U/L (12-78); ALBUMIN 2.6 g/dL (3.4-4.8); ANION GAP 8 (5-15); ASPARTATE AMINOTRANSFERASE 21 U/L (10-37); CALCIUM 8.1 mg/dL (8.4-11.0); CHLORIDE 102 mmol/L (98-107); CREATININE 0.97 mg/dL (0.55-1.30); GLUCOSE 135 mg/dL (70-99); PHOSPHORUS 3.8 mg/dL (2.7-4.5); POTASSIUM 3.9 mmol/L (3.5-5.1); SODIUM SERUM 136 mmol/L (136-145); TOTAL BILIRUBIN 0.7 mg/dL (0.0-1.0); UREA NITROGEN, BLOOD 14 mg/dL (8-21)
--- NOTE | 2019-11-03 09:48 | NUR ---
IV site became bloody after PT. IV site is restarted on left FA, #22, intact and patent.
[2019-11-03 11:24] VITALS: BP_SYST 148
--- NOTE | 2019-11-03 11:35 | NUR ---
PATIENT'S BLOOD SUGAR IS 143. NO COVERAGE NEEDED.
--- NOTE | 2019-11-03 12:42 | NUR ---
Nutrition F/U RD reviewed pt's current EMR record including diet Hx, physician notes, nursing notes, pertinent labs/meds/procedures, care trends, and care activity. Admission Dx: Complicated UTI PMH: complicated UTI, neurogenic bladder, OA, HLD, dementia per physician notes Current Diet Order/Nutrition Support: Regular, mechanical soft, Ensure Enlive TID x3 days Subjective Info: PPN per pharmacy Notification received 11/02/19 1405. Pt was seen earlier today. Pt reported that he cannot eat d/t food coming up when he tries to swallow. Pt had a ST swallow eval 11/02/19 -- ST rec for GI consult to r/o esophageal dysphagia; when medically cleared, start puree diet, thin liquids ok. Per RN, pt is pending GI consult, and pt was fearful to eat breakfast. Pt appeared to have some orbital fat pad loss and sunken cheeks, indicative of possible fat loss and muscle wasting. Pt may be at risk for malnutrition if pt continues w/ lack of nutrition d/t possible dysphagia. Current % PO Negligible PO intakes x6 meals per EMR Estimated Energy Expenditure (kcals/day) 5147-0987 kcald/ay (25-30 kcal/kg CBW for maintenance) Estimated Protein Required (g/day) 90-117 gm/day (1-1.3 gm/kg CBW for Geriatric maintenance) Estimated Fluid Required (l/day) 2.3 L/day (25ml/kg CBW for Geriatric maintenance) Nutritional Problem Risk for malnutrition related to possible dysphagia as evidenced by ST swallow eval report and pending GI consult. Expected Outcomes/Goals Monitor appetite and PO intake w/ goal of pt meeting at least 75% of estimated nutritional needs, labs trending WNL, normal GI function, skin integrity/wt maintenance. Dietitian Recommendations * Recommend pureed diet Follow Up High Risk: F/U in 2-3 days
--- NOTE | 2019-11-03 12:49 | NUR ---
Dietitian Recommendations * Recommend pureed diet LP, RD Please refer to Nutrition F/U for details.
--- NOTE | 2019-11-03 13:00 | NUR ---
patient refused lunch despite encouragement from RN and HOME HEALTH OUTREACH COORDINATOR, as he was apparently fearful that it would cause pain.
--- NOTE | 2019-11-03 14:46 | NUR ---
patient refused Oral dilantin due to that he was fearful of the pain associated with after swallowing medications or food.
[2019-11-03 15:41] VITALS: BP_SYST 138
--- NOTE | 2019-11-03 16:50 | NUR ---
BS at 106. no coverage needed.
--- NOTE | 2019-11-03 18:30 | NUR ---
patient is fed soup. Tolerated without distress.
--- NOTE | 2019-11-03 19:15 | NUR ---
OPENING NOTES Bedside report received from dayshift nurse. Patient received lying in bed, awake, confused. No s/s of acute distress noted. Breathing even and unlabored. HOB raised. IV site patent, no signs of infiltration or infection noted. Skin warm and dry to touch. SCDs attached and operating. Colon attached, secured, and draining by gravity. Call light with patient. Bed alarm on. Caregiver, Brooke, present at bedside. Will continue to monitor.
--- NOTE | 2019-11-03 19:55 | NUR ---
DR. NIEVES BEDSIDE Dr. Nieves at bedside, spoke with patient's caregiver and patient's daughter through phone. MD ordered for fecal disimpaction, fleet mineral oil enema, and miralax 17G po BID. Will carry out orders.
[2019-11-03 20:00] VITALS: BP_SYST 134; BP_SYST 148
[2019-11-03] MEDS ORDERED: TPN PERIPHERAL IV SCH ×7 (21:00)
[2019-11-03] MEDS ORDERED: MAGNESIUM SULFATE IV SCH ×7 (21:00)
[2019-11-03] MEDS ORDERED: MINERAL OIL 133 ML ENEMA RC SCH (21:00)
[2019-11-03] MEDS ORDERED: MVI IV SCH ×7 (21:00)
[2019-11-03] MEDS ORDERED: [UNRECOGNIZED DRUG - OTHER] IV SCH ×7 (21:00)
[2019-11-03] MEDS ORDERED: TRACE ELEMENTS IV SCH ×7 (21:00)
[2019-11-03] MEDS: LATANOPROST 2.5 ML DROPS (XALATAN) BOTH EYES SCH (22:16)
[2019-11-03] MEDS: POLYETHYLENE GLYCOL 3350, 17 GM/ POWD.PACK PO SCH (22:16)
[2019-11-03] MEDS: FAT EMULSIONS 250 ML IV SCH (22:19)
--- NOTE | 2019-11-03 22:30 | NUR ---
DISIMPACTION/ENEMA/MIRALAX Fecal disimpaction done at this time, enema administered. Miralax given to patient per MD order. Patient tolerated well. No difficulty swallowing. Will monitor for out put.
--- NOTE | 2019-11-04 00:30 | NUR ---
SUCTION/BREATHING TREATMENT RT at bedside suctioning patient through nasal due to congestion and ineffective cough. Patient tolerated well. Scheduled breathing treatment given afterwards. All needs met at this time. Call light with patient. Bed alarm on. Will continue to monitor.
[2019-11-04] MEDS: ALBUTEROL SULFATE 0.083% 2.5 MG/3 ML VIAL.NEB INH SCH ×4 (01:02→19:05)
[2019-11-04] MEDS: IPRATROPIUM BROM 0.5 MG/2.5 ML VIAL.NEB (ATROVENT) INH SCH ×4 (01:02→19:05)
[2019-11-04 02:24] VITALS: BP_SYST 135
--- NOTE | 2019-11-04 02:30 | NUR ---
ROUNDS Patient in bed asleep at this time. No s/s of acute distress. HOB raised. Breathing even and unlabored. Nasal canula attached properly, on 2L of oxygen. IVF infusing well, TPN and lipids. SCDs attached and operating. Bed alarm on. Will continue to monitor.
--- NOTE | 2019-11-04 04:30 | NUR ---
ROUNDS NO signs of discomfort. Chest rise and fall even bilaterally. Call light with patient. Bed alarm on. Will continue to monitor.
[2019-11-04] MEDS: INSULIN REGULAR, HUMAN 100 UNITS/ML, 10 ML VIAL (humuLIN R) SUBCUT PRN ×2 (05:48→12:51)
--- NOTE | 2019-11-04 06:34 | NUR ---
CLOSING NOTES Patient in bed sleeping at this time. No s/s of acute distress noted. Breathing even and unlabored. HOB raised, nasal canula attached properly. IVF infusing well, IV site patent, no signs of infiltration or infection noted. Skin warm and dry to touch, no s/s of hypoglycemia noted. Colon attached, secured, and draining by gravity. SCDs attached and operating. All needs met throughout shift. Fall, safety, and isolation precautions maintained throughout shift. Will continue to monitor until patient care is endorsed to oncoming dayshift nurse.
[2019-11-04 06:44] LABS: ALANINE AMINOTRANSFERASE 15 U/L (12-78); ALBUMIN 2.1 g/dL (3.4-4.8); ANION GAP 11 (5-15); CALCIUM 7.8 mg/dL (8.4-11.0); CHLORIDE 101 mmol/L (98-107); CREATININE 0.83 mg/dL (0.55-1.30); GLUCOSE 183 mg/dL (70-99); SODIUM SERUM 135 mmol/L (136-145); UREA NITROGEN, BLOOD 14 mg/dL (8-21)
[2019-11-04 06:53] LABS: ASPARTATE AMINOTRANSFERASE 33 U/L (10-37)
--- NOTE | 2019-11-04 08:00 | NUR ---
Patient received lying in bed, awake. On 2L O2, breathing is even and unlabored. IV on the left FA, #20, and left AC, #22. Colon is draining pat urine by gravity. Caregiver, Brooke, present at bedside.Call light in place, bed locked at the lowest position, will continue to monitor.
[2019-11-04] MEDS: cefTRIAXone 1 GM in D5W 50 ML IV SCH (09:52)
[2019-11-04] MEDS: POLYETHYLENE GLYCOL 3350, 17 GM/ POWD.PACK PO SCH ×2 (09:53→21:32)
[2019-11-04] MEDS: PHENYTOIN 100 MG CAPSULE PO SCH ×3 (09:53→21:31)
[2019-11-04] MEDS: DOCUSATE SODIUM 250 MG CAPSULE PO SCH ×2 (09:53→21:31)
[2019-11-04] MEDS: LEVOFLOXACIN 250 MG TABLET PO SCH (09:53)
--- NOTE | 2019-11-04 11:20 | NUR ---
blood sugar 204. 4 units of RI is given.
[2019-11-04] MEDS ORDERED: FUROSEMIDE 20 MG/2 ML VIAL IVP ONE (12:15)
[2019-11-04 12:30] VITALS: BP_SYST 130
--- NOTE | 2019-11-04 13:00 | NUR ---
patient refused lunch.
--- NOTE | 2019-11-04 16:00 | NUR ---
Dr. Mederos is called about TPN IV access. PICC line is ordered for tomorrow.
[2019-11-04 16:52] VITALS: BP_SYST 134
--- NOTE | 2019-11-04 18:00 | NUR ---
Blood sugar 144. No coverage needed.
--- NOTE | 2019-11-04 19:00 | NUR ---
RT NOTES NASAL AIRWAY IS PLACED FOR NTS. NTS PT FOR MODERATE AMOUNT OF THICK PALE YELLOW SECRETIONS. PT REMAIN ON 2L NC. MED NEB TX. GIEVEN WITHOUT ADVERSE REACTION NOTED. RN MADE AWARE.
--- NOTE | 2019-11-04 19:30 | NUR ---
OPENING NOTES Received patient resting in bed, no signs of acute respiratory distress observed, 4L Nasal canula. Autocad Operator by bedside. IVF running to Left forearm, dressings c/d/i. Call light within reach, bed alarm on, bed at lowest position. Colon catheter in place, draining by gravity, pat urine noted, no kinks or loops observed. Was endorsed that patient will have an EGD tomorrow and midline placement. Will continue to monitor.
[2019-11-04 20:00] VITALS: BP_SYST 121
[2019-11-04] MEDS ORDERED: [UNRECOGNIZED DRUG - OTHER] IV SCH ×9 (21:00)
[2019-11-04] MEDS ORDERED: TPN PERIPHERAL IV SCH ×9 (21:00)
[2019-11-04] MEDS ORDERED: MAGNESIUM SULFATE IV SCH ×9 (21:00)
[2019-11-04] MEDS ORDERED: MVI IV SCH ×9 (21:00)
[2019-11-04] MEDS ORDERED: TRACE ELEMENTS IV SCH ×9 (21:00)
--- NOTE | 2019-11-04 21:20 | NUR ---
SPOKE TO SON, RECEIVED CONSENTS FOR EGD, PERCUTANEOUS GASTROSTOMY TUBE, AND MIDLINE PLACEMENT.
[2019-11-04] MEDS: LATANOPROST 2.5 ML DROPS (XALATAN) BOTH EYES SCH (21:32)
[2019-11-04] MEDS ORDERED: VANCOMYCIN HCL 1000 MG/VIAL IV ONE (21:43)
[2019-11-04] MEDS: FAT EMULSIONS 250 ML IV SCH (21:43)
--- NOTE | 2019-11-04 23:20 | NUR ---
Suctioned patient, patient is resting, no signs of acute respiratory distress observed. Will continue to monitor.
[2019-11-05] VITALS (7 sets, daily range): BP systolic 123–146
[2019-11-05] MEDS: ALBUTEROL SULFATE 0.083% 2.5 MG/3 ML VIAL.NEB INH SCH ×4 (01:41→19:00)
[2019-11-05] MEDS: IPRATROPIUM BROM 0.5 MG/2.5 ML VIAL.NEB (ATROVENT) INH SCH ×4 (01:42→19:00)
--- NOTE | 2019-11-05 02:10 | NUR ---
Patient is resting, no signs of acute respiratory distress observed, O2 saturation 94%. Will continue to monitor.
--- NOTE | 2019-11-05 05:48 | NUR ---
SWALLOWED EVAL SWALLOWED EVAL WAS CALLED LEFT A MESSAGE FOR NITA SPEECH EMILIA
[2019-11-05 06:28] LABS: INR 1.1 (0.80-1.20); PROTHROMBIN TIME 11.4 SECS (9.5-12.5)
[2019-11-05] MEDS ORDERED: fentaNYL CITRATE/PF 100 MCG/2 ML AMP ONE (06:29)
[2019-11-05] MEDS ORDERED: SIMETHICONE 40 MG/0.6 ML ML ONE (06:30)
[2019-11-05] MEDS ORDERED: VANCOMYCIN HCL 1 GM/NS PREMIX 250 ML IV ONE (06:30)
[2019-11-05] MEDS ORDERED: MIDAZOLAM HCL 5 MG/5 ML VIAL ONE (06:30)
[2019-11-05 06:36] LABS: ALANINE AMINOTRANSFERASE 13 U/L (12-78); ALBUMIN 2.1 g/dL (3.4-4.8); ANION GAP 9 (5-15); ASPARTATE AMINOTRANSFERASE 10 U/L (10-37); CHLORIDE 101 mmol/L (98-107); CREATININE 0.86 mg/dL (0.55-1.30); GLUCOSE 187 mg/dL (70-99); PHOSPHORUS 2.3 mg/dL (2.7-4.5); SODIUM SERUM 136 mmol/L (136-145); TOTAL BILIRUBIN 0.7 mg/dL (0.0-1.0); UREA NITROGEN, BLOOD 17 mg/dL (8-21)
[2019-11-05 06:43] LABS: POTASSIUM 2.2 mmol/L (3.5-5.1)
[2019-11-05] MEDS: INSULIN REGULAR, HUMAN 100 UNITS/ML, 10 ML VIAL (humuLIN R) SUBCUT PRN (06:47)
--- NOTE | 2019-11-05 06:52 | NUR ---
CRITICAL VALUE OF 2.2, RECEIVED NEW ORDERS FOR DR. SANTILLAN OF POTASSIUM 80 MEQ OVER 8 HOURS.
[2019-11-05] MEDS ORDERED: POTASSIUM CHLORIDE 40 MEQ in NS 250 ML IV ONE ×2 (07:00→11:00)
--- NOTE | 2019-11-05 07:00 | NUR ---
SPOKE TO DR. NIEVES OF POTASSIUM 2.2. NEW ORDERS FOR BMP RECEIVED TO RECHECK VALUE OF POTASSIUM SO HOPEFULLY EGD AND PEG PLACEMENT CAN BE CONTINUED FOR TODAY.
[2019-11-05 07:40] LABS: ANION GAP 9 (5-15); CALCIUM 8.1 mg/dL (8.4-11.0); CHLORIDE 101 mmol/L (98-107); CREATININE 0.94 mg/dL (0.55-1.30); GLUCOSE 171 mg/dL (70-99); SODIUM SERUM 138 mmol/L (136-145); UREA NITROGEN, BLOOD 17 mg/dL (8-21)
[2019-11-05 07:46] LABS: ALANINE AMINOTRANSFERASE 14 U/L (12-78); ALBUMIN 2.2 g/dL (3.4-4.8); ASPARTATE AMINOTRANSFERASE 14 U/L (10-37); TOTAL BILIRUBIN 0.7 mg/dL (0.0-1.0)
[2019-11-05 07:49] LABS: POTASSIUM 2.4 mmol/L (3.5-5.1)
[2019-11-05] MEDS: cefTRIAXone 1 GM in D5W 50 ML IV SCH (10:00)
[2019-11-05] MEDS: PHENYTOIN 100 MG CAPSULE PO SCH ×3 (10:05→22:44)
[2019-11-05] MEDS: DOCUSATE SODIUM 250 MG CAPSULE PO SCH ×2 (10:05→21:00)
[2019-11-05] MEDS: POLYETHYLENE GLYCOL 3350, 17 GM/ POWD.PACK PO SCH ×2 (10:05→22:43)
--- NOTE | 2019-11-05 13:21 | NUR ---
PHYSICAL THERAPY CO-SIGN The Physical Therapy Progress Notes documented by Grill Attendant have been reviewed. Reviewed/Co-Signed by: Kleber Garcia, PT Documentation Done by: JODI RANDOLPH PTA Addendum: 11/05/19 at 1330 by Kleber Garcia PT Amended: Links added.
--- NOTE | 2019-11-05 13:29 | NUR ---
PHYSICAL THERAPY CO-SIGN The Physical Therapy Progress Notes documented by Senior Financial Accountant have been reviewed. Reviewed/Co-Signed by: Kleber Garcia, PT Documentation Done by: JODI RANDOLPH PTA Addendum: 11/05/19 at 1330 by Kleber Garcia PT Amended: Links added.
--- NOTE | 2019-11-05 13:50 | NUR ---
S.T. SWALLOW EVAL SWALLOW EVAL COMPLETED. PT PRESENTS W/ ML-MOD OROPHARYNGEAL DYSPHAGIA W/ DELAYED BOLUS TRANSFER AND DELAYED SWALLOW. NO S/S OF ASPIRATION. PT CONTINUES TO C/O CHEST PAIN WITH SWALLOWING. PER NRSG AND CAREGIVER, PT WAS SCHEDULED FOR EGD TODAY, BUT PROCEDURE POSTPONED TILL TOMORROW. REC: PROCEED W/ EGD ORDERED. MAY HAVE PUREE AND THIN LIQUIDS IF MEDICALLY CLEARED AFTER EGD. NURSE WILY NOTIFIED. CAREGIVER VERBALIZED UNDERSTANDING. G8996 CJ G8997 CJ G8998 CJ NOMS LEVEL 5
[2019-11-05] MEDS: LEVOFLOXACIN 250 MG TABLET PO SCH (13:57)
--- NOTE | 2019-11-05 14:10 | NUR ---
Spoke with Tamar Lamas in regards to the level k+ 2.2 again on seconds draw, he ordered to hold EGC/PEG until potassium low level resolves. He wants to redraw labs again at 5pm and midnight noon instead of 5am.
[2019-11-05] MEDS ORDERED: MAGNESIUM SULFATE 50 ML IV ONE (15:45)
--- NOTE | 2019-11-05 18:30 | NUR ---
Magnesium was administered as requested, patient is doing well, ok after picc line.
--- NOTE | 2019-11-05 20:48 | NUR ---
Paged Dr. Mederos [phone] s/w Bettina
[2019-11-05] MEDS ORDERED: MVI IV SCH ×10 (21:00)
[2019-11-05] MEDS ORDERED: TPN PERIPHERAL IV SCH ×10 (21:00)
[2019-11-05] MEDS ORDERED: [UNRECOGNIZED DRUG - OTHER] IV SCH ×10 (21:00)
[2019-11-05] MEDS ORDERED: MAGNESIUM SULFATE IV SCH ×10 (21:00)
[2019-11-05] MEDS ORDERED: TRACE ELEMENTS IV SCH ×10 (21:00)
[2019-11-05] MEDS ORDERED: KCL 40 mEq in 100 mL (PREMIX) 100 ML IV ONE (21:15)
[2019-11-05] MEDS: FAT EMULSIONS 250 ML IV SCH (22:22)
[2019-11-05] MEDS: LATANOPROST 2.5 ML DROPS (XALATAN) BOTH EYES SCH (22:53)
[2019-11-06] MEDS: ALBUTEROL SULFATE 0.083% 2.5 MG/3 ML VIAL.NEB INH SCH ×4 (00:54→19:40)
[2019-11-06] MEDS: IPRATROPIUM BROM 0.5 MG/2.5 ML VIAL.NEB (ATROVENT) INH SCH ×4 (00:54→19:40)
[2019-11-06] MEDS ORDERED: FLUCONAZOLE 100 mg/ NS 50 ML IV SCH (04:30)
[2019-11-06] MEDS: INSULIN REGULAR, HUMAN 100 UNITS/ML, 10 ML VIAL (humuLIN R) SUBCUT PRN ×3 (06:14→21:55)
[2019-11-06] MEDS ORDERED: VANCOMYCIN HCL 1 GM/NS PREMIX 250 ML IV ONE (07:00)
[2019-11-06] MEDS ORDERED: SIMETHICONE 40 MG/0.6 ML ML ONE (07:15)
[2019-11-06] MEDS: MIDAZOLAM HCL 5 MG/5 ML VIAL ONE ×6 (07:30→08:07)
[2019-11-06] MEDS: fentaNYL CITRATE/PF 100 MCG/2 ML AMP ONE ×2 (07:30→07:38)
[2019-11-06 08:00] VITALS: BP_SYST 140
[2019-11-06 08:03] LABS: ALANINE AMINOTRANSFERASE 14 U/L (12-78); ALBUMIN 2.1 g/dL (3.4-4.8); ANION GAP 8 (5-15); ASPARTATE AMINOTRANSFERASE 14 U/L (10-37); CALCIUM 8.4 mg/dL (8.4-11.0); CHLORIDE 104 mmol/L (98-107); CREATININE 0.87 mg/dL (0.55-1.30); GLUCOSE 218 mg/dL (70-99); PHOSPHORUS 2.1 mg/dL (2.7-4.5); POTASSIUM 3.6 mmol/L (3.5-5.1); SODIUM SERUM 138 mmol/L (136-145); TOTAL BILIRUBIN 1.1 mg/dL (0.0-1.0); UREA NITROGEN, BLOOD 16 mg/dL (8-21)
[2019-11-06] MEDS: DOCUSATE SODIUM 250 MG CAPSULE PO SCH ×2 (09:00→21:00)
[2019-11-06] MEDS: POLYETHYLENE GLYCOL 3350, 17 GM/ POWD.PACK PO SCH ×2 (09:00→21:00)
[2019-11-06] MEDS: PHENYTOIN 100 MG CAPSULE PO SCH ×2 (09:00→21:00)
[2019-11-06] MEDS: metroNIDAZOLE 500 mg/NS 100 ML IV SCH ×2 (09:48→22:01)
[2019-11-06] MEDS: cefTRIAXone 1 GM in D5W 50 ML IV SCH (09:48)
[2019-11-06] MEDS: FLUCONAZOLE 100 mg/ NS 50 ML IV SCH (09:49)
--- NOTE | 2019-11-06 10:06 | NUR ---
P.T. NOTES FIRST ATTEMPT UNABLE TO SEE PATIENT FOR P.T. DUE TO HAVING A PROCEDURE. SECOND ATTEMPT, PER CAREGIVER PATIENT WAS NOT ABLE TO HAVE PROCEDURE DONE. HOWEVER, PATIENT UNABLE TO PARTICIPATE W/ P.T. DUE TO NOT FEELING WELL AND FEELING FATIGUED.
[2019-11-06 11:19] VITALS: BP_SYST 134
[2019-11-06 15:43] VITALS: BP_SYST 123
--- NOTE | 2019-11-06 17:03 | NUR ---
Nutrition F/U RD reviewed pt's current EMR record including diet Hx, physician notes, nursing notes, pertinent labs/meds/procedures, care trends, and care activity. Admission Dx: Complicated UTI PMH: complicated UTI, neurogenic bladder, OA, HLD, dementia per physician notes Current Diet Order/Nutrition Support: NPO x1 day + PPN D20%, AA8.5% at 70 ml/hr, IL20% at 10 ml/hr daily via peripheral line PPN Provides: 1337 kcal/day, 71 gm protein/day, 1920 ml total volume/day, and GIR: 1.3 gm CHO/kg/min PPN Meets: 59% of lower end of estimated caloric needs and 79% of lower end of estimated protein needs Pertinent Medical Info: Pt is s/p EGD today (11/06/19); found w/ massive food impaction, possible esophageal stricture. ST swallow eval was completed 11/05/19; ST rec for EGD as ordered -- pt may have have puree and thin liquids if medically cleared after EGD. Subjective Info: Pt was seen resting in bed w/ caregiver and niece at bedside. PPN infusing as per physician/pharmacy order. Pt is not yet meeting optimal nutritional needs. RD communicated RD rec for PPN goal rate. Current % PO Negligible PO intakes x6 meals per EMR Estimated Energy Expenditure (kcals/day) 7052-0084 kcald/ay (25-30 kcal/kg CBW for maintenance) Estimated Protein Required (g/day) 90-117 gm/day (1-1.3 gm/kg CBW for Geriatric maintenance) Estimated Fluid Required (l/day) 2.3 L/day (25ml/kg CBW for Geriatric maintenance) Nutritional Problem Risk for malnutrition related to possible dysphagia as evidenced by ST swallow eval report and pending GI consult. *ongoing, though pt is meeting partial nutritional needs w/ PPN support Expected Outcomes/Goals Monitor appetite and PO intake w/ goal of pt meeting at least 75% of estimated nutritional needs, labs trending WNL, normal GI function, skin integrity/wt maintenance. Dietitian Recommendations * Recommend PPN D20%, AA10% at 90 ml/hr (goal rate), IL20% at 10 ml/hr daily via peripheral line Provides: 1646 kcal/day, 108 gm protein/day, 2400 ml total volume/day, and GIR: 1.7 gm CHO/kg/mine Meets: 73% of lower end of estimated caloric needs and 92% of upper end of estimated protein needs Follow Up High Risk: F/U in 2-3 days
--- NOTE | 2019-11-06 17:12 | NUR ---
Dietitian Recommendations * Recommend PPN D20%, AA10% at 90 ml/hr (goal rate), IL20% at 10 ml/hr daily via peripheral line Provides: 1646 kcal/day, 108 gm protein/day, 2400 ml total volume/day, and GIR: 1.7 gm CHO/kg/mine Meets: 73% of lower end of estimated caloric needs and 92% of upper end of estimated protein needs LP, RD Please refer to Nutrition F/U for details.
[2019-11-06 17:14] LABS: ANION GAP 6 (5-15); CALCIUM 8.2 mg/dL (8.4-11.0); CHLORIDE 106 mmol/L (98-107); CREATININE 0.93 mg/dL (0.55-1.30); GLUCOSE 153 mg/dL (70-99); SODIUM SERUM 139 mmol/L (136-145); UREA NITROGEN, BLOOD 18 mg/dL (8-21)
--- NOTE | 2019-11-06 19:30 | NUR ---
Opening notes Received report. Patient is resting in bed, no signs of distress noted. Breathing even and unlabored on 4 L oximizer with trumpet in place due to patient needing frequent suctioning. PICC line patent and intact, infusing TPN and lipids. Patient NPO at this time. Patient will have EGD in AM. Caregiver Balbina at bedside. No needs. Call light with the patient. Safety precautions in place.
[2019-11-06 20:00] VITALS: BP_SYST 118
[2019-11-06] MEDS ORDERED: POTASSIUM CHLORIDE IV SCH ×10 (21:00)
[2019-11-06] MEDS ORDERED: SODIUM CHLORIDE IV SCH ×10 (21:00)
[2019-11-06] MEDS ORDERED: [UNRECOGNIZED DRUG - OTHER] IV SCH ×10 (21:00)
[2019-11-06] MEDS ORDERED: TPN PERIPHERAL IV SCH ×10 (21:00)
--- NOTE | 2019-11-06 21:30 | NUR ---
Left voicemail for son x2 to callback [facility]. Need to obtain new consent for EGD procedure in AM. Per caregiver, son goes to sleep early and wakes up at 0330 AM to get ready for work. Will try again in AM.
--- NOTE | 2019-11-06 21:55 | NUR ---
TPN/Lipids new bag hung and verified by second nurse. TPN rate @ 70 ml/hr. No needs at this time. Call light with the patient. Safety precautions in place. Caregiver at bedside. IV in left arm removed. Catheter tip intact and discarded. Patient tolerated well. No other needs. Call light with the patient. Safety precautions in place.
[2019-11-06] MEDS: FAT EMULSIONS 250 ML IV SCH (21:59)
[2019-11-06] MEDS: LATANOPROST 2.5 ML DROPS (XALATAN) BOTH EYES SCH (22:01)
--- NOTE | 2019-11-06 22:45 | NUR ---
Son called back Son Yonathan Boone called back and gave consent for EGD. Second nurse was present to verify telephone consent. Consent placed in chart.
--- NOTE | 2019-11-07 | NUR ---
Hygiene care provided. Patient tolerated well. Patient able to provide some assistance with turning. No other needs. Call light with the patient. Safety precautions in place.
[2019-11-07] MEDS: IPRATROPIUM BROM 0.5 MG/2.5 ML VIAL.NEB (ATROVENT) INH SCH ×4 (00:29→20:33)
[2019-11-07] MEDS: ALBUTEROL SULFATE 0.083% 2.5 MG/3 ML VIAL.NEB INH SCH ×4 (00:29→20:33)
[2019-11-07 01:03] VITALS: BP_SYST 124
--- NOTE | 2019-11-07 02:00 | NUR ---
Sleeping Patient in and out of sleep. Patient needs attended as needed. No signs of distress noted. Breathing even and unlabored. Call light with the patient. Safety precautions in place.
--- NOTE | 2019-11-07 04:30 | NUR ---
Sleeping No signs of distress noted. Breathing even and unlabored. TPN/Lipids infusing well. No needs. Call light with the patient, safety precautions in place. Caregiver at bedside.
[2019-11-07] MEDS: INSULIN REGULAR, HUMAN 100 UNITS/ML, 10 ML VIAL (humuLIN R) SUBCUT PRN ×3 (06:12→22:19)
--- NOTE | 2019-11-07 07:05 | NUR ---
Closing notes Patient is resting in bed. No signs of distress noted. Breathing even and unlabored. PICC line patent and intact, infusing TPN/Lipids. NPO status maintained. All needs met throughout the shift. Call light with the patient. Safety precautions in place. Will endorse care to day shift RN. Caregiver at bedside.
[2019-11-07 07:51] LABS: ANION GAP 9 (5-15); CALCIUM 7.7 mg/dL (8.4-11.0); CHLORIDE 105 mmol/L (98-107); CREATININE 0.82 mg/dL (0.55-1.30); GLUCOSE 192 mg/dL (70-99); PHOSPHORUS 3.1 mg/dL (2.7-4.5); SODIUM SERUM 139 mmol/L (136-145); UREA NITROGEN, BLOOD 19 mg/dL (8-21)
[2019-11-07 07:57] LABS: INR 1.1 (0.80-1.20); PROTHROMBIN TIME 10.9 SECS (9.5-12.5)
[2019-11-07 07:58] LABS: POTASSIUM 2.9 mmol/L (3.5-5.1)
[2019-11-07] MEDS ORDERED: ONDANSETRON HCL 4 MG/2 ML VIAL IVP PRN (08:45)
[2019-11-07] MEDS ORDERED: HYDROmorphone 1 MG INJ. 1 MG/ML AMPUL IVP PRN (08:45)
[2019-11-07] MEDS: PHENYTOIN 100 MG CAPSULE PO SCH ×3 (09:00→21:00)
[2019-11-07] MEDS: POLYETHYLENE GLYCOL 3350, 17 GM/ POWD.PACK PO SCH ×2 (09:00→21:00)
[2019-11-07] MEDS: DOCUSATE SODIUM 250 MG CAPSULE PO SCH ×2 (09:00→21:00)
--- NOTE | 2019-11-07 09:42 | NUR ---
P.T. NOTES UNABLE TO SEE PATIENT FOR P.T., PER CAREGIVER HAVING PROCEDURE DONE.
[2019-11-07 09:50] VITALS: BP_SYST 133
[2019-11-07] MEDS: [UNRECOGNIZED DRUG - OTHER] IV SCH ×10 (11:15)
[2019-11-07] MEDS: TPN PERIPHERAL IV SCH ×10 (11:15)
[2019-11-07] MEDS: POTASSIUM CHLORIDE IV SCH ×10 (11:15)
[2019-11-07] MEDS: SODIUM CHLORIDE IV SCH ×10 (11:15)
[2019-11-07 11:26] VITALS: BP_SYST 138
[2019-11-07] MEDS: metroNIDAZOLE 500 mg/NS 100 ML IV SCH ×2 (14:01→22:40)
[2019-11-07] MEDS: FLUCONAZOLE 100 mg/ NS 50 ML IV SCH (14:02)
[2019-11-07] MEDS: cefTRIAXone 1 GM in D5W 50 ML IV SCH (14:03)
[2019-11-07 15:25] VITALS: BP_SYST 138
[2019-11-07] MEDS ORDERED: PHENYTOIN SODIUM 100 MG/2 ML VIAL (DILANTIN) IVP ONE (17:00)
[2019-11-07 17:32] LABS: ANION GAP 8 (5-15); BASOPHILS % (AUTO) 0.5 % (0.0-2.0); CALCIUM 8.1 mg/dL (8.4-11.0); CHLORIDE 104 mmol/L (98-107); CREATININE 0.76 mg/dL (0.55-1.30); EOSINOPHILS # (AUTO) 0.4 K/uL (0.0-0.4); EOSINOPHILS % (AUTO) 4.8 % (0.0-4.0); GLUCOSE 200 mg/dL (70-99); HEMATOCRIT 35.4 % (36-54); HEMOGLOBIN 12.1 g/dL (14.0-18.0); LYMPHOCYTES # (AUTO) 0.7 K/uL (1.0-5.5); LYMPHOCYTES % (AUTO) 7.8 % (20.5-51.5); MEAN CORPUSCULAR HEMOGLOBIN 34 pg (27-31); MEAN CORPUSCULAR HGB CONC 34 % (32-36); MEAN CORPUSCULAR VOLUME 100 fL (79.0-98.0); MONOCYTES # (AUTO) 0.5 K/uL (0.0-1.0); MONOCYTES % (AUTO) 6.2 % (1.7-9.3); NEUTROPHILS # (AUTO) 6.7 K/uL (1.8-7.7); NEUTROPHILS % (AUTO) 80.7 % (40.0-70.0); PLATELET COUNT (AUTO) 161 K/uL (130-430); RED BLOOD CELL COUNT(AUTO) 3.53 MIL/uL (4.2-6.2); RED CELL DISTRIBUTION WIDTH 14.3 % (9.0-15.0); SODIUM SERUM 136 mmol/L (136-145); UREA NITROGEN, BLOOD 18 mg/dL (8-21); WHITE BLOOD COUNT (AUTO) 8.4 K/uL (4.8-10.8)
[2019-11-07] MEDS ORDERED: NS IV ONE (18:00)
[2019-11-07] MEDS ORDERED: PHENYTOIN SODIUM IV ONE (18:00)
[2019-11-07] MEDS ORDERED: POTASSIUM CHLORIDE 40 MEQ in NS 250 ML IV ONE (19:00)
--- NOTE | 2019-11-07 19:30 | NUR ---
Opening notes Received report. Patient is resting in bed, no signs of distress noted. Breathing even and unlabored on 4 L oximizer with trumpet in place due to patient needing frequent suctioning. PICC line patent and intact, infusing TPN and lipids. Patient NPO at this time. Caregiver Balbina at bedside. No needs. Call light with the patient. Safety precautions in place.
[2019-11-07 21:03] VITALS: BP_SYST 140
--- NOTE | 2019-11-07 22:00 | NUR ---
Medications given. Educated the action and side effects of medications. Patient tolerated well. No needs at this time. Call light with the patient. Safety precautions in place.
[2019-11-07] MEDS: LATANOPROST 2.5 ML DROPS (XALATAN) BOTH EYES SCH (22:20)
[2019-11-07] MEDS: FAT EMULSIONS 250 ML IV SCH (22:20)
[2019-11-07] MEDS ORDERED: metroNIDAZOLE 500 mg/NS 100 ML IV ONE (22:47)
--- NOTE | 2019-11-08 | NUR ---
Resting Patient resting, no signs of distress noted. Breathing even and unlabored. Patient moaning. Asked if he is in pain, nods no. No needs at this time. Call light with the patient. Safety precautions in place. Caregiver at bedside.
--- NOTE | 2019-11-08 01:15 | NUR ---
CONSULTATION PAGED/CALLED Reason for Consultation: PEG PLACEMENT Person Who was Notified: MAGY IN SURGERY /DR. MEDLEY IS IN OR Consulting Physician: TYRELL Electric Meter Installer Helper Specialty: Ordering Physician: GALINDO
[2019-11-08 01:29] VITALS: BP_SYST 153
--- NOTE | 2019-11-08 02:00 | NUR ---
Sleeping No signs of distress noted. Breathing even and unlabored on 4 L oximizer. No needs. Call light with the patient. Safety precautions in place. Caregiver at bedside.
--- NOTE | 2019-11-08 04:40 | NUR ---
Hygiene care provided patient tolerated well. No signs of distress noted. Breathing even and unlabored. No other needs. Call light with the patient. Safety precautions in place. Caregiver at bedside.
[2019-11-08] MEDS: INSULIN REGULAR, HUMAN 100 UNITS/ML, 10 ML VIAL (humuLIN R) SUBCUT PRN ×3 (06:29→21:07)
--- NOTE | 2019-11-08 06:50 | NUR ---
Closing notes Patient is resting in bed. No signs of distress noted. Breathing even and unlabored on 4l oximizer. PICC line patent and intact, infusing TPN/Lipids. NPO status maintained. Patient to have surgery today. All needs met throughout the shift. Call light with the patient. Safety precautions in place. Will endorse care to day shift RN. Caregiver at bedside.
[2019-11-08] MEDS: IPRATROPIUM BROM 0.5 MG/2.5 ML VIAL.NEB (ATROVENT) INH SCH ×4 (07:04→19:55)
[2019-11-08] MEDS: ALBUTEROL SULFATE 0.083% 2.5 MG/3 ML VIAL.NEB INH SCH ×4 (07:05→19:55)
--- NOTE | 2019-11-08 07:25 | NUR ---
OPENING NOTE Patient resting in the bed. No acute distress. Continue on O2 @ 4L/min via oximizer. Skin warm and dry to touch. PICC line intact, no redness, no swelling, covered with clean and dry transparent dressing. On TPN and lipid, infusing well. F/C intact, drain gravity with pat urine. production coordinator at bedside. On contact isolation. Safety measure maintained. Call light within reached. Bed locked in low position, side rails up, bed alarm on. Will continue to monitor.
[2019-11-08 08:00] VITALS: BP_SYST 138
--- NOTE | 2019-11-08 08:05 | NUR ---
SEEN AND EXAMINED BY ROMMEL GRACE WITH ORDER RECEIVED.
[2019-11-08 08:54] LABS: BASOPHILS % (AUTO) 0.6 % (0.0-2.0); EOSINOPHILS # (AUTO) 0.6 K/uL (0.0-0.4); EOSINOPHILS % (AUTO) 6.8 % (0.0-4.0); HEMATOCRIT 34.8 % (36-54); HEMOGLOBIN 11.9 g/dL (14.0-18.0); LYMPHOCYTES # (AUTO) 0.7 K/uL (1.0-5.5); LYMPHOCYTES % (AUTO) 8.5 % (20.5-51.5); MEAN CORPUSCULAR HEMOGLOBIN 34 pg (27-31); MEAN CORPUSCULAR HGB CONC 34 % (32-36); MEAN CORPUSCULAR VOLUME 100 fL (79.0-98.0); MONOCYTES # (AUTO) 0.5 K/uL (0.0-1.0); MONOCYTES % (AUTO) 5.7 % (1.7-9.3); NEUTROPHILS # (AUTO) 6.8 K/uL (1.8-7.7); NEUTROPHILS % (AUTO) 78.4 % (40.0-70.0); PLATELET COUNT (AUTO) 154 K/uL (130-430); RED BLOOD CELL COUNT(AUTO) 3.48 MIL/uL (4.2-6.2); RED CELL DISTRIBUTION WIDTH 14.3 % (9.0-15.0); WHITE BLOOD COUNT (AUTO) 8.7 K/uL (4.8-10.8)
[2019-11-08] MEDS: POLYETHYLENE GLYCOL 3350, 17 GM/ POWD.PACK PO SCH ×2 (09:00→21:52)
[2019-11-08] MEDS: DOCUSATE SODIUM 250 MG CAPSULE PO SCH ×2 (09:00→21:52)
[2019-11-08] MEDS: PHENYTOIN 100 MG CAPSULE PO SCH ×3 (09:00→21:53)
--- NOTE | 2019-11-08 09:37 | NUR ---
SEEN AND EXAMINED BY DR. [facility].
[2019-11-08 09:42] LABS: ANION GAP 10 (5-15); CALCIUM 7.9 mg/dL (8.4-11.0); CHLORIDE 102 mmol/L (98-107); CREATININE 0.73 mg/dL (0.55-1.30); GLUCOSE 214 mg/dL (70-99); POTASSIUM 3.3 mmol/L (3.5-5.1); SODIUM SERUM 134 mmol/L (136-145); UREA NITROGEN, BLOOD 17 mg/dL (8-21)
[2019-11-08] MEDS: cefTRIAXone 1 GM in D5W 50 ML IV SCH (09:49)
[2019-11-08] MEDS: [UNRECOGNIZED DRUG - OTHER] IV SCH ×10 (10:10)
[2019-11-08] MEDS: POTASSIUM CHLORIDE IV SCH ×10 (10:10)
[2019-11-08] MEDS: TPN PERIPHERAL IV SCH ×10 (10:10)
[2019-11-08] MEDS: SODIUM CHLORIDE IV SCH ×10 (10:10)
[2019-11-08] MEDS: metroNIDAZOLE 500 mg/NS 100 ML IV SCH ×2 (10:20→20:58)
--- NOTE | 2019-11-08 11:20 | NUR ---
P.T. NOTES UNABLE TO SEE PATIENT FOR P.T. AT THIS TIME, PER CAREGIVER PATIENT WILL HAVE PROCEDURE DONE LATER IN THE AFTERNOON AND WOULD LIKE TO HAVE PATIENT REST UNTIL THEN.
--- NOTE | 2019-11-08 11:25 | NUR ---
YU=396 No insulin needed per sliding scale for GD=800. Patient resting in the bed. No acute distress. Continue on O2 @ 4L/min via oximizer. Skin warm and dry to touch. PICC line intact, continue on TPN and lipid, infusing well. F/C intact, drain gravity. Contact isolation maintained. Safety measure maintained. Call light within reached. Bed locked in low position, side rails up, bed alarm on. Continue to monitor.
--- NOTE | 2019-11-08 11:48 | NUR ---
K=3.3 Called and reported to Micah Valdes, patient's K=3.[address] Mederos with order of Krider 20mEq IVPB X 1, order read back and okay to
[2019-11-08] MEDS ORDERED: POTASSIUM CHLORIDE 20 MEQ in NS 250 ML IV ONE (12:00)
--- NOTE | 2019-11-08 12:31 | NUR ---
JINNY WILL GIVE AFTER GT PLACEMENT Received the call from OR, the surgery of GT placement will do it at [address] Rhoades not to give Jinny now and give it after surgery.
[2019-11-08 12:35] VITALS: BP_SYST 133
[2019-11-08] MEDS: FLUCONAZOLE 100 mg/ NS 50 ML IV SCH (12:57)
--- NOTE | 2019-11-08 13:05 | NUR ---
OFF UNIT Patient off unit for GT placement via bed in stable condition. Transport with portable oxygen. CHG bath given. Care given went with patient.
[2019-11-08] MEDS ORDERED: NACL 0.9% 1,000 ML IV SCH (14:23)
[2019-11-08] MEDS ORDERED: ONDANSETRON HCL 4 MG/2 ML VIAL IVP PRN (14:30)
--- NOTE | 2019-11-08 15:00 | NUR ---
BACK TO UNIT Patient back to unit via bed in stable condition. No acute distress. Continue on O2 4L/min via oximizer. Skin warm and dry to touch. PICC line intact, on NS infusing well. GT placement done, dressing intact, clean and dry, no active bleeding noted. Colon intact, drain gravity. Safety measure maintained. Call light within reached. Bed locked in low position, side rails up, bed alarm on. Continue to monitor.
--- NOTE | 2019-11-08 17:07 | NUR ---
ROUND Patient resting in the bed with eyes closed. No acute distress. Continue on O2 4L/min via oximizer. Skin warm and dry to touch. PICC line intact, on TPN, lipid and Krider, infusing well. Colon intact, drain gravity. lead nurse at bedside. Contact isolation maintained. Safety measure maintained. Call light within reached. Bed locked in low position, side rails up, bed alarm on. Continue to monitor.
[2019-11-08 17:29] VITALS: BP_SYST 121
--- NOTE | 2019-11-08 17:55 | NUR ---
CALLED CAMERON GRACE REGARDING THE ORDER OF GT FEEDING NOT CLEAR GLUCERNA 1.2 OR 1.5 AND WHEN START GT FEEDING, IS NEED TO BE STOP THE TPN. LEFT MESSAGE AND WAITED TO CALL BACK.
--- NOTE | 2019-11-08 18:59 | NUR ---
CLOSING NOTE Patient resting in the bed. No acute distress. Continue on O2 @ 4L/min via oximizer. Skin warm and dry to touch. PICC line intact, no redness, no swelling, covered with clean and dry transparent dressing. On TPN at 80ml/hr and lipid 10ml/hr, infusing well. F/C intact, drain gravity with pat urine. facilities locator at bedside. On contact isolation. All needs met. On S/p GT placement, intact with clean and dry dressing, no active bleeding noted. Safety measure maintained. Call light within reached. Bed locked in low position, side rails up, bed alarm on. Will endorse to monitor.
--- NOTE | 2019-11-08 19:55 | NUR ---
OPENING NOTES Pt and endorsement received from day shift nurse. Pt is awake, alert and lying in bed. Caregiver at bedside. Pt on O2 inhalation at 24L via oxymizer. Pt on IVF with NS at 60ml/hr, TPN at 80ml/hr and Liposyn at 10ml/hr and infusing well on right upper arm PICC. No complains of pain at this time. No signs of acute distress or SOB noted. Encouraged to use call light when needed. Safety precautions in place with 3 side rails up, wheels locked, bed alarm on and in lowest level. Call light with pt. Will continue to monitor. Addendum: 11/09/19 at 0634 by Geno Perez RN O2 inhalation at 4L not 24.
[2019-11-08] MEDS: FAT EMULSIONS 250 ML IV SCH (20:57)
[2019-11-08 21:00] VITALS: BP_SYST 137
[2019-11-08] MEDS: LATANOPROST 2.5 ML DROPS (XALATAN) BOTH EYES SCH (21:00)
[2019-11-08] MEDS ORDERED: POTASSIUM CHLORIDE IV SCH ×10 (21:00)
[2019-11-08] MEDS ORDERED: TPN PERIPHERAL IV SCH ×10 (21:00)
[2019-11-08] MEDS ORDERED: SODIUM CHLORIDE IV SCH ×10 (21:00)
[2019-11-08] MEDS ORDERED: [UNRECOGNIZED DRUG - OTHER] IV SCH ×10 (21:00)
--- NOTE | 2019-11-08 21:53 | NUR ---
ROUNDS Assessed for bowel sounds and is active upon auscultation. Residual is 5ml. All due meds given and pt tolerated well. Aspiration precaution maintained with head elevated at 45 degrees. TPN and lipids are infusing well. Safety precautions in place. Caregiver at bedside. Will continue to monitor.
--- NOTE | 2019-11-08 23:00 | NUR ---
ROUNDS Reassessed bowel sounds and is active upon auscultation. Residual is 10ml. G-tube feeding started with Glucerna at 20ml/hr. Aspiration precaution maintained with head elevated at 45 degrees. Safety precautions in place and caregiver at bedside. Will continue to monitor.
[2019-11-09 01:09] VITALS: BP_SYST 137
[2019-11-09] MEDS: ALBUTEROL SULFATE 0.083% 2.5 MG/3 ML VIAL.NEB INH SCH ×4 (01:22→19:55)
--- NOTE | 2019-11-09 02:02 | NUR ---
ROUNDS Pt is resting in bed with both eyes closed, with visible chest rise and fall with non-labored breathing noted. G-tube feeding, TPN and Liposyn are infusing well. No complains of pain and no signs of acute distress noted. Safety precautions in place and call light with pt. Caregiver at bedside. Will continue to monitor.
--- NOTE | 2019-11-09 04:45 | NUR ---
ROUNDS Pt is resting in bed with both eyes closed, with visible chest rise and fall with non-labored breathing noted. G-tube feeding, TPN and Liposyn are infusing well. No signs of acute distress noted. No needs at this time. Safety precautions in place and call light with pt. Caregiver at bedside. Will continue to monitor.
[2019-11-09] MEDS: INSULIN REGULAR, HUMAN 100 UNITS/ML, 10 ML VIAL (humuLIN R) SUBCUT PRN ×2 (06:22→21:55)
--- NOTE | 2019-11-09 06:37 | NUR ---
CLOSING NOTES Pt is resting in bed with both eyes closed, with visible chest rise and fall with non-labored breathing noted. Maintained O2 inhalation at 4L via oxymizer. G-tube feeding, TPN and Liposyn are infusing well. No complains of pain at this time. No signs of acute distress or SOB noted. All needs attended throughout the shift. Safety precautions maintained with 3 side rails up, wheels locked, bed alarm on and in lowest level. Call light with pt. Caregiver at bedside. Will endorse to day shift nurse.
[2019-11-09] MEDS: IPRATROPIUM BROM 0.5 MG/2.5 ML VIAL.NEB (ATROVENT) INH SCH ×3 (07:22→19:55)
--- NOTE | 2019-11-09 07:32 | NUR ---
OPENING NOTE Patient resting in the bed. No acute distress. Continue on O2 @ 4L/min via oximizer. Skin warm and dry to touch. PICC line intact, no redness, no swelling, covered with clean and dry transparent dressing. On TPN at 90ml/hr and lipid 10ml/hr, infusing well. F/C intact, drain gravity with pat urine. social services analyst at bedside. On contact isolation. On S/p GT placement, intact with clean and dry dressing, no active bleeding noted. SCD in placed. Safety measure maintained. Call light within reached. Bed locked in low position, padded side rails up, bed alarm on. Will continue to monitor.
[2019-11-09 07:59] LABS: ANION GAP 9 (5-15); CALCIUM 7.8 mg/dL (8.4-11.0); CHLORIDE 102 mmol/L (98-107); CREATININE 0.73 mg/dL (0.55-1.30); GLUCOSE 211 mg/dL (70-99); PHOSPHORUS 3.7 mg/dL (2.7-4.5); POTASSIUM 3.4 mmol/L (3.5-5.1); SODIUM SERUM 134 mmol/L (136-145); UREA NITROGEN, BLOOD 19 mg/dL (8-21)
[2019-11-09 08:00] VITALS: BP_SYST 126
[2019-11-09] MEDS: DOCUSATE SODIUM 250 MG CAPSULE PO SCH ×2 (08:15→21:52)
[2019-11-09] MEDS: cefTRIAXone 1 GM in D5W 50 ML IV SCH (08:15)
[2019-11-09] MEDS: POLYETHYLENE GLYCOL 3350, 17 GM/ POWD.PACK PO SCH ×2 (08:15→21:52)
[2019-11-09] MEDS: PHENYTOIN 100 MG CAPSULE PO SCH ×3 (08:16→21:52)
--- NOTE | 2019-11-09 09:16 | NUR ---
JAS PIERCE Seen and examined by Dr. Gardner with order received. Answered and explained the questions to caregiver that she has at bedside, verbally understanding.
[2019-11-09] MEDS: metroNIDAZOLE 500 mg/NS 100 ML IV SCH ×2 (10:00→21:59)
--- NOTE | 2019-11-09 10:05 | NUR ---
SEEN AND EXAMINED BY DR. MCCLAIN [facility].
[2019-11-09 11:10] VITALS: BP_SYST 134
--- NOTE | 2019-11-09 11:41 | NUR ---
KJ=740 No insulin coverage needed per sliding scale for JN=273 as ordered. Patient resting in the bed. No acute distress. Continue on O2 4L/min via oxymizer. HOB elevated. GT intact, GTF tolerated well. SCD applied. 3d designer at bedside. Continue on contact isolation. Safety measure maintained. Call light within reached. Bed locked in low position, padded side rails up, bed alarm on. Continue to monitor.
--- NOTE | 2019-11-09 12:19 | NUR ---
P.T. NOTES AFTER MULTIPLE ATTEMPTS PATIENT REFUSES TO BE SEEN BY P.T., PATIENT STATES FEELING WEAK AND TIRED TO DO ANYTHING.
--- NOTE | 2019-11-09 13:00 | NUR ---
INCREASED THE GT FEEDING RATE FROM 30ML/HR TO 40ML/HR.
[2019-11-09] MEDS: FLUCONAZOLE 100 mg/ NS 50 ML IV SCH (14:09)
--- NOTE | 2019-11-09 14:55 | NUR ---
ROUND Patient resting in the bed with eyes closed. No acute distress. Continue on O2 4L/min via oximizer. GT intact, GT feeding tolerated well. Skin warm and dry to touch. PICC line intact. Colon intact, drain gravity. animal caregiver at bedside. Contact isolation maintained. Safety measure maintained. Call light within reached. Bed locked in low position, side rails up, bed alarm on. Continue to monitor.
--- NOTE | 2019-11-09 15:15 | NUR ---
DC Planning: Reported to dr. Mederos: pt's sister and ADRIEN/Kaylene # [phone] to confirm their agreement to discharge pt to home with home health vs snf vs LTAC. Kaylene stated " absolutely no snf or Ltac due to past experiences and the pt wishes not to ever be in a nursing facility." Kaylene wants pt home with home health, preferring [facility]. 2nd any HH agency if [facility] is not accepted. CM advised her to cancel the current HH agency once we have the dc order. Dr. Mederos made aware. The previous LTAC order was not approved since the pt never be on Tele level since admission (minimum requirement for LTAC) . Per clinical record and DESI Meza: the patient does not meet Tele status . Dr Mederos made aware but he ordered to put pt on Tele status anyway. LIZETH requested the md to call nursing staff to review the tele status and to give the order. dept is unable to write such order. Wendy Martinez Dir and Kenzie, Head staff made aware.
[2019-11-09 15:43] VITALS: BP_SYST 132
--- NOTE | 2019-11-09 16:10 | NUR ---
HANSEN CATH changed Changed Hansen due to leakage. # 16 FR Hansen catheter with 10 cc bulb inserted with use of sterile technique. Bulb inflated with 10 cc sterile water. Immediate return of 200 cc of cloudy urine noted. Bedside drainage bag placed below level of bladder. Patient tolerated procedure well.
--- NOTE | 2019-11-09 16:33 | NUR ---
Nutrition F/U RD reviewed pt's current EMR record including diet Hx, physician notes, nursing notes, pertinent labs/meds/procedures, care trends, and care activity. Admission Dx: Complicated UTI PMH: complicated UTI, neurogenic bladder, OA, HLD, dementia per physician notes Current Diet Order/Nutrition Support: Glucerna 1.5 at 30 ml/hr, increase 10 ml/hr every 4 hrs if tolerating well, the goal is 60 ml/hr, Free Water Flush: 100ml Q6hr via GT x0 days Pertinent Medical Info: Pt is s/p EGD (11/06/19); found w/ massive food impaction, possible esophageal stricture. ST swallow eval was completed 11/05/19; ST rec for EGD as ordered -- pt may have have puree and thin liquids if medically cleared after EGD. 11/08/19 EGD w/ Bx, PEG tube insertion by surgeon. Subjective Info: RD received Nutrition Consult for s/p GT placement, eval for GT feeding. RN stated that pt's TF will likely only run for 18 hours/day d/t administration of dilantin 3x/day (TF needs to be held 1 hour before and after administration). Current TF regimen will not meet optimal nutritional needs while running for only 18 hours/day -- provides 1620 kcal/day, 89 gm protein/day, and 1220 ml free water/day; this meets 72% of lower end of estimated caloric needs and 99% of lower end of estimated protein needs. Glucerna 1.5 TF is appropriate d/t pt's elevated BG levels since admission. Estimated Energy Expenditure (kcals/day) 4541-7226 kcald/ay (25-30 kcal/kg CBW for maintenance) Estimated Protein Required (g/day) 90-117 gm/day (1-1.3 gm/kg CBW for Geriatric maintenance) Estimated Fluid Required (l/day) 2.3 L/day (25ml/kg CBW for Geriatric maintenance) Nutritional Problem Risk for malnutrition related to possible dysphagia as evidenced by ST swallow eval report and pending GI consult. *ongoing, partial needs met w/ TF Expected Outcomes/Goals Monitor appetite and PO intake w/ goal of pt meeting at least 75% of estimated nutritional needs, labs trending WNL, normal GI function, skin integrity/wt maintenance. Dietitian Recommendations * Glucerna 1.5 at 80 ml/hr x18 hours, Free Water Flush: 200 ml Q4h via GT Provides: 2160 kcal/day, 119 gm protein/day, 2293 ml free water/day Meets: 96% of lower end of estimated caloric needs and 102% of upper end of estimated protein needs Follow Up High Risk: F/U in 2-3 days Addendum: 11/09/19 at [address]на [address] RD CORRECTION: Dietitian Recommendations * Glucerna 1.5 at 30 ml/hr x18 hours, increase by 10 ml/hr Q4h to goal of 80 ml/hr, Free Water Flush: 200 ml Q4h via GT Provides: 2160 kcal/day, 119 gm protein/day, 2293 ml free water/day Meets: 96% of lower end of estimated caloric needs and 102% of upper end of estimated protein needs HEMA, RD
--- NOTE | 2019-11-09 16:39 | NUR ---
Dietitian Recommendations * Glucerna 1.5 at 30 ml/hr x18 hours, increase by 10 ml/hr Q4h to goal of 80 ml/hr, Free Water Flush: 200 ml Q4h via GT Provides: 2160 kcal/day, 119 gm protein/day, 2293 ml free water/day Meets: 96% of lower end of estimated caloric needs and 102% of upper end of estimated protein needs LP, RD Please refer to Nutrition F/U for details.
--- NOTE | 2019-11-09 17:00 | NUR ---
INCREASED THE GT FEEDING RATE FROM 40ML/HR TO 50ML/HR.
--- NOTE | 2019-11-09 18:42 | NUR ---
CLOSING NOTE Patient resting in the bed. No acute distress. Continue on O2 @ 4L/min via oximizer. HOB elevated. Gt intact, patent, on Glucerna 1.5 at 50 ml at this time. Skin warm and dry to touch. PICC line intact, no redness, no swelling, covered with clean and dry transparent dressing. F/C intact, drain gravity with pat urine. slurry blender at bedside. On contact isolation. SCD in placed. No seizure activity noted during shift. Safety measure maintained. Call light within reached. Bed locked in low position, padded side rails up, bed alarm on. Will continue to monitor.
--- NOTE | 2019-11-09 19:40 | NUR ---
OPENING NOTES Pt and endorsement received from day shift nurse. Pt is awake, alert and lying in bed. Caregiver at bedside. Pt on O2 inhalation at 4L via oxymizer. Pt on G-tube feeding with Glucerna 1.5 at 50ml/hr and infusing well. Pt on saline lock on right upper arm PICC. Pt on ruby catheter with yellow urine noted in the bag and hanged below bladder level. No complains of pain at this time. No signs of acute distress or SOB noted. Encouraged to use call light when needed. Safety precautions in place with 3 side rails up, wheels locked, bed alarm on and in lowest level. Call light with pt. Will continue to monitor.
[2019-11-09 21:50] VITALS: BP_SYST 132
[2019-11-09] MEDS: LATANOPROST 2.5 ML DROPS (XALATAN) BOTH EYES SCH (21:52)
--- NOTE | 2019-11-09 22:00 | NUR ---
ROUNDS Tube feeding was stopped one hour before med pass. Assessed for bowel sounds and is active upon auscultation. Residual is 10ml. All due meds given and pt tolerated well. Aspiration precaution maintained with head elevated at 45 degrees. Will resume feeding after one hour. Safety precautions in place. Caregiver at bedside. Will continue to monitor.
--- NOTE | 2019-11-09 23:00 | NUR ---
ROUNDS Tube feeding resumed, residual was 10ml. Increased rate at 60ml/hr. Will continue to monitor.
[2019-11-10] VITALS: BP_SYST 141
[2019-11-10] MEDS: IPRATROPIUM BROM 0.5 MG/2.5 ML VIAL.NEB (ATROVENT) INH SCH ×4 (00:05→19:35)
[2019-11-10] MEDS: ALBUTEROL SULFATE 0.083% 2.5 MG/3 ML VIAL.NEB INH SCH ×4 (00:06→19:35)
--- NOTE | 2019-11-10 02:02 | NUR ---
ROUNDS Pt is resting in bed with both eyes closed, with visible chest rise and fall with non-labored breathing noted. G-tube feeding is infusing well. No moaning or grimacing noted and no signs of acute distress noted. Safety precautions in place and call light with pt. Caregiver at bedside. Will continue to monitor.
--- NOTE | 2019-11-10 03:00 | NUR ---
ROUNDS Pt is resting in bed with both eyes closed, with visible chest rise and fall with non-labored breathing noted. G-tube feeding rate increased to 70ml/hr. No signs of acute distress noted. No needs at this time. Safety precautions in place and call light with pt. Caregiver at bedside. Will continue to monitor.
[2019-11-10] MEDS: INSULIN REGULAR, HUMAN 100 UNITS/ML, 10 ML VIAL (humuLIN R) SUBCUT PRN ×3 (06:06→18:29)
--- NOTE | 2019-11-10 06:40 | NUR ---
CLOSING NOTES Pt is resting in bed with both eyes closed, with visible chest rise and fall with non-labored breathing noted. Maintained O2 inhalation at 4L via oxymizer. G-tube feeding is infusing well. Kept ruby hanged below bladder level. No complains of pain at this time. No signs of acute distress or SOB noted. All needs attended throughout the shift. Safety precautions maintained with 3 side rails up, wheels locked, bed alarm on and in lowest level. Call light with pt. Caregiver at bedside. Will endorse to day shift nurse.
--- NOTE | 2019-11-10 08:00 | NUR ---
RN INITIAL NOTES RECEIVED PATIENT IN BED WITH O2 @ 4 L/MIN VIA OXYMIZER ,HOB ELEVATED, PATIENT OPENS EYES SPONTANEOUSLY, WITH NEWLY GTUBE PLACED TOLERATING GTUBE @ 80CC/HR INTACT AND NO SIGN OF ASPIRATION , WILL CONT PLAN F CARE
[2019-11-10 08:15] VITALS: BP_SYST 134
[2019-11-10] MEDS: POLYETHYLENE GLYCOL 3350, 17 GM/ POWD.PACK PO SCH ×3 (08:56→21:00)
[2019-11-10] MEDS: DOCUSATE SODIUM 250 MG CAPSULE PO SCH ×2 (08:56→09:00)
[2019-11-10] MEDS: PHENYTOIN 100 MG CAPSULE PO SCH ×2 (08:56→16:16)
[2019-11-10] MEDS: cefTRIAXone 1 GM in D5W 50 ML IV SCH (09:00)
[2019-11-10] MEDS: metroNIDAZOLE 500 mg/NS 100 ML IV SCH ×2 (09:30→21:00)
[2019-11-10 11:13] VITALS: BP_SYST 131
--- NOTE | 2019-11-10 12:00 | NUR ---
ROUNDS MEDS AND GTUBE FEEDING TOLERATED
[2019-11-10] MEDS: FLUCONAZOLE 100 mg/ NS 50 ML IV SCH (14:43)
--- NOTE | 2019-11-10 15:00 | NUR ---
DC Planning: Reported to dr. Mederos : cm received call from Kaylene/pt's sister , very upset that the md still wants to send pt to [facility]. She said she has spoken with the md for no [facility], no [facility]. She called the md again today but has not retuning calls. Kaylene wants pt to go home with [facility]. I was able to reach dr. Mederos and let him know if the above info. The md then order to discharge pt home as follow: May discharge patient to home with home health for IV abx, PT and GT feeding care. RN to call ID for antibiotics needs. -- DESI Meza made aware. >Kaylene made aware of the DC to home with home health (set up in progress). The pt can go home once home health , gtf pump and supplies and transportation have been set up. Kaylene agreed with the discharge plan.
[2019-11-10 15:39] VITALS: BP_SYST 128
--- NOTE | 2019-11-10 16:00 | NUR ---
DISCHARGE ORDER PATIENT WITH DC ORDER , RN TO CALL ID FOR IV ATB TO SWITCHED TO PO. CALLED DR MARK RODRIGUEZ WITH ORDERS NOTED , LANDSCAPE PHOTOGRAPHER MADE AWARE
--- NOTE | 2019-11-10 16:14 | NUR ---
DC Planning: faxed referral inquiry to Aicha @ [facility] fax# [phone], tel [phone]. Per Aicha, the can provide the DME with GTF set up and IV medication set up. CM to fax the home IV order once verify with ID. Addendum: 11/10/19 at 1732 by Sue Hoang RN Called back from Aicha: the pt is accepted. Aicha will help arranging DME and IV abx as needed. CM dept will be follow up in am. Kaylene/pt's sister made aware that pt may be dc tomorrow or until the equipment is set up at home.
--- NOTE | 2019-11-10 16:50 | NUR ---
PHARMACY VERIFIED PHARMACIST MADE AWARE THAT IV ATB TO CONT AND PER PHARMACIST WILL HOLD PO ATB TILL PATIENT WILL BE DC HOME , PER CHARGE NURSE AWAITING FOR DC PROCESS BY CM AND HH
--- NOTE | 2019-11-10 17:42 | NUR ---
ENDORSEMENT WILL CONT CARE AND CONT WITH IV ATB FOR NOW , PATIENT DISCHARGE HOME PENDING D/T HH EQUIPMENTS NEEDS TO BE DELIVERED PRIOR PATIENT DC HOME , CHARGE NURSE MADE AWMONICA , RADIOPHARMACIST IS AWARE AND FAMILY IS AWARE . PATIENT IS TOLERATING GTUBE FEEDING AND NO COMPLAINED OF PAIN Addendum: 11/10/19 at 1835 by Natalie Whitt RN ADDITIONAL ENDORSEMENT DR Chepe SANTILLAN MADE AWARE THAT PATIENT STILL HERE, WILL DC BACK HOME PROB TOMORROW OR TUESDAY PENDING ALL NECESSARY EQUIPMENT TO BE DELIVERED TO HOME PRIOR DISCHARGE . DR. MARK RODRIGUEZ MADE AWARE THAT PATIENT STILL HERE DISCHARGE PENDING SAME REASON ABOVE Addendum: 11/10/19 at 1904 by Natalie Whitt RN ADDITIONAL DR JOHN Bowman
[2019-11-10 20:00] VITALS: BP_SYST 125
--- NOTE | 2019-11-10 20:00 | NUR ---
received pt in bed v/s and assessment done ,pt appears to be confuded at times ,,iv fluids infusing via picc line tko, g tube with gluerna 1.5 @ 80 cc/hr with water flushes,ruby in place draining clear urine.
[2019-11-10] MEDS: LATANOPROST 2.5 ML DROPS (XALATAN) BOTH EYES SCH (21:00)
[2019-11-10] MEDS: PHENYTOIN 100 MG/4 ML UDC (DILANTIN) GT SCH (21:00)
[2019-11-10] MEDS: DOCUSATE SODIUM 100 MG/10 ML UDC GT SCH (21:00)
[2019-11-11] VITALS (7 sets, daily range): BP systolic 113–127
--- NOTE | 2019-11-11 | NUR ---
pt repositioned made comfortable
[2019-11-11] MEDS: IPRATROPIUM BROM 0.5 MG/2.5 ML VIAL.NEB (ATROVENT) INH SCH ×4 (01:17→19:36)
[2019-11-11] MEDS: ALBUTEROL SULFATE 0.083% 2.5 MG/3 ML VIAL.NEB INH SCH ×4 (01:17→19:35)
--- NOTE | 2019-11-11 04:00 | NUR ---
am care given repositioned and made comfortable , senior care manager at bedside.
[2019-11-11] MEDS: INSULIN REGULAR, HUMAN 100 UNITS/ML, 10 ML VIAL (humuLIN R) SUBCUT PRN ×2 (06:29→21:39)
--- NOTE | 2019-11-11 08:00 | NUR ---
RN INITIAL NOTES RECEIVED PATIENT IN BED ASLEEP NO DISTRESS, RESP EVEN SATING 97% TO 2L/MIN , RESP EVEN AND UNLABORED , RESPONDS WHEN CALLED , NO FACIAL GRIMACE ,PICC LINE TO RT UPPER ARM INTACT TO KVO, GTUBE FEEDING TOLERATING.
[2019-11-11] MEDS: metroNIDAZOLE 500 mg/NS 100 ML IV SCH ×2 (09:00→10:30)
[2019-11-11] MEDS ORDERED: FLUCONAZOLE 100 MG TABLET (DIFLUCAN) PO SCH (09:00)
[2019-11-11] MEDS ORDERED: metroNIDAZOLE 500 MG TABLET GT SCH (09:00)
[2019-11-11] MEDS: POLYETHYLENE GLYCOL 3350, 17 GM/ POWD.PACK PO SCH ×3 (09:00→21:37)
[2019-11-11] MEDS: PHENYTOIN 100 MG/4 ML UDC (DILANTIN) GT SCH ×3 (09:20→21:36)
[2019-11-11] MEDS: DOCUSATE SODIUM 100 MG/10 ML UDC GT SCH ×2 (09:21→21:36)
--- NOTE | 2019-11-11 09:31 | NUR ---
UNDERCUTTER VISIT PATIENT SEEN BY UNDERCUTTER DISCUSSED PATIENT CONDITION AND DISCHARGE PLANNING PENDING D/T PATIENT HOME HEALTH SITUATION , ALL SUPPLY NEEDS TO BE READY BEFORE PATIENT DISCHARGE HOME
--- NOTE | 2019-11-11 09:38 | NUR ---
Discharge Planning: COMMERCIAL ILLUSTRATOR placed call to [facility] ([phone]) to discuss status of home health, iv, and gtube feeding/supplies. COMMERCIAL ILLUSTRATOR spoke to Aicha who states that their company will only provide home health PT/RN services; that they do not order any IV antibiotics or gtube feeding/supplies. Aicha states that they can accept the pt for home health but need to know what Infusion company will order IV meds and who will provide gtube feeding/supplies. ZOHAIB spoke with charge nurse who stated that pt will no longer need IV antibiotics upon discharge; pt will be given medication via gtube. COMMERCIAL ILLUSTRATOR asked charge nurse to clarify order for gtube feeding and supplies-order needs to state formula, rate, and pump or bolus. [facility] has faxed general order to Meagan Flores ([phone] f.[phone]). [facility] will fax detailed order once received to Meagan Flores. Addendum: 11/11/19 at 1205 by Kenzie Hayes LCSW DME order received; DME order states that pt needs home oxygen. COMMERCIAL ILLUSTRATOR reviewed chart and no ABG has been ordered. COMMERCIAL ILLUSTRATOR spoke with pts' sister and confirmed pt does not have oxygen at home. [facility] asked for ABG to be ordered to check pt's O2 sat on room air. [facility] has faxed ABG, order and paperwork to [facility] ([phone] f.[phone]). [facility] also faxed updated gtube feeding order to Meagan Flores ([phone]). Addendum: 11/11/19 at 1332 by Kenzie Hayes LCSW ZOHAIB spoke with Alexandro ([phone]) at [facility]; Alexandro confirms that pt qualifies for home oxygen. Alexandro will arrange for home set up tomorrow, Tuesday11/12/2019. [facility] placed call to Meagan Wilson ([phone]); they are closed on Sundays; COMMERCIAL ILLUSTRATOR left a message for someone to call ZOHAIB or [place] on Tuesday to arrange for delivery of gtube feeding and supplies.
--- NOTE | 2019-11-11 11:39 | NUR ---
ABG/OTR TANKER TRUCK DRIVER SPOKE WITH OTR TANKER TRUCK DRIVER AND STILL WAITING FOR ABG RESULT IN THE COMPUTER , INFORMED CM THAT ABG WAS DONE AND SHOWN BY THE RT TO ME , PATIENT WAS RESUMED BACK TO OXYGEN 2L/MIN AND WILL CONT TO MONITOR , WILL NEED TO ORDER OXYGEN WITH DME
--- NOTE | 2019-11-11 14:40 | NUR ---
GI VISIT GTUBE REFEREED TO DR VELARDE REG RATE OF 80 CC/HR WITH ORDER TO LOWER TO 50 CC/HR AND HAVE DIETARY CONSULT TO RE EVAL
[2019-11-11] MEDS ORDERED: METR500T PO (14:47)
[2019-11-11] MEDS ORDERED: DIF100 PO (14:48)
[2019-11-11] MEDS: FLUCONAZOLE 100 mg/ NS 50 ML IV SCH (14:52)
--- NOTE | 2019-11-11 17:00 | NUR ---
ROUNDS PATIENT NOT IN ANY DISTRESS, RESP EVEN AND UNLABORED, CONT WITH GTUBE FEEDING TOLERATING , REPOSITIONED AND KEEP BACK DRY AND CLEAN
--- NOTE | 2019-11-11 19:15 | NUR ---
change of shift.pt.presents quiescent affect;calm,resting;zoo caretaker present.pt.presents picc line:iv fluids infusing.pt.presents g-tube;g-tube feed infusing. pt.presents ruby cath;urine content present.pt.presents o2 therapy via nasal cannulae.general status stable.respiratory status stable;call light/ telephone/in reach of the pt.
--- NOTE | 2019-11-11 19:25 | NUR ---
ENDORSEMENT PATIENT ENDORSED TO NEXT SHIFT IN STABLE CONDITION, WITH GTUBE TOLERATING , WITH HANSEN CATH IN PLACE INTACT, PATIENT WITH PICC LINE TO RT UPPER ARM , TO DC PICC LINE WHEN PATIENT WILL BE DC BACK HOME, PATIENT ALREADY WITH O2 AT BEDSIDE DELIVERED BY HOME HEALTH STAFF , FREELANCE DIGITAL PROJECT MANAGER AWARE OF THE PLAN FOR DC TOMORROW, BUT TO KEEP HANSEN CATH
--- NOTE | 2019-11-11 20:00 | NUR ---
pt.assessed.v/s assessed;values w/in normal limits.no c/o pain,nausea.pt.assessed for cleanliness.pt.repositioned. picc line intact;patent;iv fluids infusing.g-tube intact;patent;g-tube feed infusing.ruby cath intact;patent urine content present. general status stable.general status;weakness.respiratory status stable:02-sat%=96%.call light/telephone placed w/in the read of the pt. Addendum: 11/12/19 at 0214 by Joseluis Staley RN i have administered the g-tube flush:200ml.i have placed the nsg/pt.alert sign;re;rt.arm picc line.
--- NOTE | 2019-11-11 20:30 | NUR ---
i have assessed the blood glucose;value:151mg/dl.i have apprised the pt/leather goods sales representative of the value.
--- NOTE | 2019-11-11 21:00 | NUR ---
2100p medications administered via g-tube w/out resistance.i have provided the demonstration to the molded grid and parts inspector re;adminstration technique;g-tube.molded grid and parts inspector to administer medications/g-tube@pt's home.
[2019-11-11] MEDS: LATANOPROST 2.5 ML DROPS (XALATAN) BOTH EYES SCH (21:36)
--- NOTE | 2019-11-11 22:00 | NUR ---
pt.assessed.pt assessed for cleanliness.pt.cleaned.pt.repositioned.picc line intact;patent iv fluids infusing.g-tube intact;patent; g-tube feed infusing.ruby cath intact;patent;urine content present.general status stable.respiratory status stable. o2-sat%=96% pt.presents quiescent affect;calm,somnolent.call light/telephone placed w/in reach of the pt. Addendum: 11/12/19 at 0213 by Joseluis Staley RN i have administered the g-tube flush;200ml. Addendum: 11/12/19 at 021 by Joseluis Staley RN i have changed the g-tube feed bottle/tubing.i have initiated the g-tube feed.
--- NOTE | 2019-11-12 | NUR ---
pt.assessed.v/s assessed;values w/in normal limits.pt.assessed for cleanliness.pt.repositioned.picc line intact;patent,iv fluids infusing.g-tube intact;patent g-tube feed infusing.ruby cath intact;patent;urine content present.general status stable.respiratory status stable: o2-sat%=96%.call light/telephone placed w/in reach of the pt.
[2019-11-12 01:03] VITALS: BP_SYST 109
[2019-11-12] MEDS: ALBUTEROL SULFATE 0.083% 2.5 MG/3 ML VIAL.NEB INH SCH ×4 (01:16→19:44)
[2019-11-12] MEDS: IPRATROPIUM BROM 0.5 MG/2.5 ML VIAL.NEB (ATROVENT) INH SCH ×4 (01:16→19:43)
--- NOTE | 2019-11-12 02:00 | NUR ---
pt.assessed.pt.presents quiescent affect;calm,somnolent.pt.assessed for cleanliness.pt repositioned.picc line;intact;patent; iv fluids infusing.g-tube intact;patent:g-tube feed infusing.ruby cath intact;patent;urine content present.general status stable;respiratory status stable;unlabored:02-sat%=96%.call light/telephone placed w/in reach of the pt.
--- NOTE | 2019-11-12 04:00 | NUR ---
pt.assessed.pt.presents quiescent affect;calm,somnolent.g-tube intact;patent;g-tube feed infusing.i have administered the g-tube flush:200ml. picc line intact;patent;iv fluids infusing.ruby cath intact;patent;urine content present.general status stable.respiratory status stable;o2-sat%=96%.call light/telephone placed w/in reach of the pt.pt.assessed for cleanliness.pt repositioned.
[2019-11-12] MEDS: INSULIN REGULAR, HUMAN 100 UNITS/ML, 10 ML VIAL (humuLIN R) SUBCUT PRN ×3 (06:00→17:25)
--- NOTE | 2019-11-12 06:00 | NUR ---
pt.assessed.pt.assessed for cleanliness.pt.repositioned.i have assessed the blood glucose;value;165mg/dl. i have administered insulin;regular;2-units.picc line intact;patent;iv fluids infusing.g-tube intact;patent g-tube feed infusing. ruby cath intact;patent;urine content present.general status stable.respiratory status stable;o2-sat%= 96%. call light/ telephone placed w/in reach of the pt.the coding technician remained @bedside throughout the night.
--- NOTE | 2019-11-12 07:30 | NUR ---
Initial notes: Patient awake, alert and oriented x1. Stable. Picc line in placed. Gtube in placed with running formula of Glucer 1.5 @ 50ml/hr. Colon cath by gravity running well. SCD on BLE. Caregiver at bedside. Call light within reach. Safety measures in placed. Report received at bedside.
[2019-11-12 08:00] VITALS: BP_SYST 115
[2019-11-12] MEDS: metroNIDAZOLE 500 mg/NS 100 ML IV SCH (08:59)
[2019-11-12] MEDS: DOCUSATE SODIUM 100 MG/10 ML UDC GT SCH ×3 (08:59→22:26)
[2019-11-12] MEDS: PHENYTOIN 100 MG/4 ML UDC (DILANTIN) GT SCH ×3 (08:59→22:26)
[2019-11-12] MEDS: POLYETHYLENE GLYCOL 3350, 17 GM/ POWD.PACK PO SCH ×4 (08:59→22:28)
--- NOTE | 2019-11-12 10:51 | NUR ---
Discharge Planning: BRENDA spoke to Carole at [place] [address] , confirmed feeding, she will fax form for doctor to fill out for feeding. DCP to follow up Addendum: 11/12/19 at 1413 by Keira Ge DP DCP faxed Prescription form filled out by doctor to Carole at [place] [address] . DCP spoke to Carole fax was received. Just need DC order to set up delivery. Addendum: 11/12/19 at 1439 by Keira Ge DP BRENDA made nurse aware. ANAMIKAP made transportation arrangement on [facility] for pt. Addendum: 11/12/19 at 1621 by Keira Ge DP DCP faxed final order per request to [facility] (f [phone] p [phone]) making them aware to contact doctor for prescription per nurse, BRENDA faxed final order to Carole Flores [phone]. Addendum: 11/12/19 at 1625 by Keira Ge DP [facility] ([phone]) BLS 6:00pm nurse aware
--- NOTE | 2019-11-12 10:52 | NUR ---
Hansa. Patient seen by Kartik ambulates with walker and PT.
[2019-11-12 12:00] VITALS: BP_SYST 115
--- NOTE | 2019-11-12 12:33 | NUR ---
rounds: accu check done. 2 units of insulin given patient. girlfriend at bedside.
--- NOTE | 2019-11-12 13:53 | NUR ---
Nutrition F/U RD reviewed pt's current EMR record including diet Hx, physician notes, nursing notes, pertinent labs/meds/procedures, care trends, and care activity. Admission Dx: Complicated UTI PMH: complicated UTI, neurogenic bladder, OA, HLD, dementia per physician notes Current Diet Order/Nutrition Support: Glucerna 1.5 at 30 ml/hr x18 hours, increase by 10 ml/hr Q4h to goal of 80 ml/hr, Free Water Flush: 200 ml Q4h via GT x 3 days Pertinent Medical Info: Pt is s/p EGD (11/06/19); found w/ massive food impaction, possible esophageal stricture. ST swallow eval was completed 11/05/19; rec for EGD as ordered -- pt may have have puree and thin liquids if medically cleared after EGD. 11/08/19 EGD w/ Bx, PEG tube insertion by surgeon. Subjective Info: Pt seen in bed, EN infusing. Per RN, pt has been tolerating EN very well, w/ only 2-3ml residual this morning. Per EMR, last BM 11/12 x2. POC BG today 157 (high). Per bed huddle discussion, pt is awaiting discharge once GT supplies is delivered to home. Current EN regimen remains adequate and appropriate. Estimated Energy Expenditure (kcals/day) 3982-2718 kcald/ay (25-30 kcal/kg CBW for maintenance) Estimated Protein Required (g/day) 90-117 gm/day (1-1.3 gm/kg CBW for Geriatric maintenance) Estimated Fluid Required (l/day) 2.3 L/day (25ml/kg CBW for Geriatric maintenance) Nutritional Problem Risk for malnutrition related to possible dysphagia as evidenced by ST swallow eval report and pending GI consult. *ongoing, partial needs met w/ TF Expected Outcomes/Goals Monitor EN tolerance and intake w/ goal of pt meeting at least 75% of estimated nutritional needs, labs trending WNL, normal GI function, skin integrity/wt maintenance. Dietitian Recommendations * Continue Glucerna 1.5 at 80 ml/hr x18 hours, Free Water Flush: 200 ml Q4h via GT Provides: 2160 kcal/day, 119 gm protein/day, 2293 ml free water/day Meets: 96% of lower end of estimated caloric needs and 102% of upper end of estimated protein needs Follow Up High Risk: F/U in 2-3 days
[2019-11-12] MEDS: FLUCONAZOLE 100 mg/ NS 50 ML IV SCH (13:54)
--- NOTE | 2019-11-12 13:57 | NUR ---
Dietitian Recommendations * Continue Glucerna 1.5 at 80 ml/hr x18 hours, Free Water Flush: 200 ml Q4h via GT Provides: 2160 kcal/day, 119 gm protein/day, 2293 ml free water/day Meets: 96% of lower end of estimated caloric needs and 102% of upper end of estimated protein needs Please see Nutrition F/U note for details PRISON, RD
[2019-11-12 16:10] VITALS: BP_SYST 115
--- NOTE | 2019-11-12 17:01 | NUR ---
Hold D/C: Held discharge due to home nebulizer need to arrange. Dr. Gatito chambers.
--- NOTE | 2019-11-12 18:35 | NUR ---
Closing notes: Patient resting on bed. Stable. Caregiver at bedside. Needs attended. Discharged was hold due to the need to arrange the home nebulizer. Report will be given to machine designer.
[2019-11-12 19:00] VITALS: BP_SYST 112
--- NOTE | 2019-11-12 19:15 | NUR ---
change of shift.pt 's d/c held.2/t o2-therapy set-up not attended per the attending company.pt.presents picc line;intact; patent. iv fluids infusing.pt.presents g-tube intact;g-tube feed infusing.pt.presents ruby cath intact;patent urine content present. pt receiving o2 therapy via nasal cannulae;breathing pattern slightly labored.call light/telephone w/in reach of the pt.pt's circulating process inspector@the bedside to remain w/in the shift.
[2019-11-12 20:00] VITALS: BP_SYST 112
--- NOTE | 2019-11-12 20:00 | NUR ---
pt.assessed.v/s assessed;values w/in normal limits.pt.assessed for cleanliness.pt.repositioned.picc line intact;patent;iv fluids infusing.g-tube intact;patent;g-tube feed infusing.ruby cath intact;patent urine content present.general status stable.respiratory status stable;slightly labored;02-sat%=96%.no c/o pain,nausea.call light/telephone placed w/in the reach of the pt. Addendum: 11/13/19 at 0257 by Joseluis Staley RN i have administered the g-tube flush;200ml.
--- NOTE | 2019-11-12 21:00 | NUR ---
2100pmedications administered via the g-tube;administered w/out resistance;g-tube patent.
--- NOTE | 2019-11-12 22:00 | NUR ---
pt.assessed.pt.assessed for cleanliness.pt.repositioned.picc line intact;patent;iv fluids infusing.g-tube intact;patent g-tube feed infusing.ruby cath intact;patent;urine content prsewt.i have chnmaged th g-tube feed bottle/tudbionh.call light/telephone placed w/in reach of the pt.general status stable.respiratory status stable;slightly labored;o2-sat%=96%.
[2019-11-12] MEDS: LATANOPROST 2.5 ML DROPS (XALATAN) BOTH EYES SCH (22:26)
--- NOTE | 2019-11-13 | NUR ---
pt.assessed.v/s assessed;values w/in normal limits.pt.assessed for cleanliness.pt.repositioned.picc line intact;patent;iv fluids infusing. g-tube intact;patent;g-tube feed infusing.ruby cath intact;patent:urine content present.general status stable.respiratory status stable; o2-sat%=96%.call light/telephone placed w/in reach of the pt. Addendum: 11/13/19 at 0258 by Joseluis Staley RN i have administered the g-tube flush;200ml.
[2019-11-13 00:23] VITALS: BP_SYST 114
[2019-11-13] MEDS: IPRATROPIUM BROM 0.5 MG/2.5 ML VIAL.NEB (ATROVENT) INH SCH ×3 (00:49→13:22)
[2019-11-13] MEDS: ALBUTEROL SULFATE 0.083% 2.5 MG/3 ML VIAL.NEB INH SCH ×3 (00:49→13:22)
--- NOTE | 2019-11-13 02:00 | NUR ---
pt.assessed.pt.assessed for cleanliness.pt.repositioned.picc line intact;patent;iv fluids infusing.g-tube intact;patent g-tube feed infusing.ruby cath intact;patent urine content present.general status stable.respiratory status stable;o2-sat%=96% call light/telephone placed w/in reach of the pt.
--- NOTE | 2019-11-13 04:00 | NUR ---
pt.assessed.pt.presents quiescent affect;calm,somnolent.pt.assessed for cleanliness.pt.repositioned.picc line intact;patent; iv fluids infusing.g-tube intact;patent;g-tube feed infusing.ruby cath intact;patent;urine content present .general status stable.respiratory status stable;slight labored.o2-sat%=96%call light/telephone placed w/in reach of the pt.
--- NOTE | 2019-11-13 06:30 | NUR ---
pt.assessed.pt.assessed for cleanliness.pt.cleaned.pt.repositioned.picc line intact;patent iv fluids infusing.g-tube intact;patent; g-tube feed infusing. ruby cath intact;patent urine content present.general status stable.respiratory status stable.call light/telephone placed w/in reach of the pt.i assessed the blood glucose;value:171mg/dl.i have administered insulin;regular:2-units.
[2019-11-13] MEDS: INSULIN REGULAR, HUMAN 100 UNITS/ML, 10 ML VIAL (humuLIN R) SUBCUT PRN ×2 (06:42→11:34)
[2019-11-13 08:00] VITALS: BP_SYST 122
--- NOTE | 2019-11-13 08:00 | NUR ---
INITIAL NOTE PT RESTING IN BED, NO ACUTE DISTRESS NOTED. PT ON 2L NC, TOLERATING WELL, BREATHING EVEN AND UNLABORED. HANSEN DRAINING TO GRAVITY. TUBE FEEDING INFUSING WELL. CALL LIGHT WITHIN REACH, BED IN LOW AND LOCKED POSITION WITH BED ALARM ON. SECURITY SYSTEMS TECHNICIAN AT BEDSIDE.
[2019-11-13] MEDS: PHENYTOIN 100 MG/4 ML UDC (DILANTIN) GT SCH ×2 (08:44→15:33)
[2019-11-13] MEDS: DOCUSATE SODIUM 100 MG/10 ML UDC GT SCH (08:45)
--- NOTE | 2019-11-13 10:00 | NUR ---
RN ROUNDS PT RESTING IN BED, NO ACUTE DISTRESS NOTED, BREATHING EVEN AND UNLABORED. PT REMAINS ON 2L NC.
--- NOTE | 2019-11-13 10:37 | NUR ---
Discharge Planning: DCP faxed [facility] ([phone] f.[phone]) the order for nebulizer. DCP faxed Dr Mederos at (f [phone] p [phone]) the form to fill out and sign for nebulizer and pharmacy [facility] [address] [facility] [address] for neb meds. Addendum: 11/13/19 at 1701 by Keira Ge DP DCP ARRANGED FOR TRANSPORT WITH [facility] ([phone]) 6:00PM NURSE MADE AWARE
--- NOTE | 2019-11-13 11:11 | NUR ---
PHYSICAL THERAPY CO-SIGN The Physical Therapy Progress Notes documented by Publications Editor have been reviewed. Reviewed/Co-Signed by: Kleber Garcia PT Documentation Done by: ADIA SHORT PTA Addendum: 11/13/19 at 1113 by Kleber Garcia PT Amended: Links added.
--- NOTE | 2019-11-13 11:12 | NUR ---
PHYSICAL THERAPY CO-SIGN The Physical Therapy Progress Notes documented by Manager Servicing have been reviewed. Reviewed/Co-Signed by: Kleber Garcia PT Documentation Done by: JODI RANDOLPH PTA Addendum: 11/13/19 at 1113 by Kleber Garcia PT Amended: Links added.
[2019-11-13 11:21] VITALS: BP_SYST 123
--- NOTE | 2019-11-13 12:15 | NUR ---
RN ROUNDS NO CHANGE IN ASSESSMENT. WILL CONTINUE TO MONITOR. SENIOR MOBILE APPLICATION DEVELOPER AT BEDSIDE.
--- NOTE | 2019-11-13 14:39 | NUR ---
RN ROUNDS NO CHANGE IN ASSESSMENT, WILL CONTINUE TO MONITOR.
[2019-11-13 15:56] VITALS: BP_SYST 122
[2019-11-13 17:46] VITALS: BP_SYST 122
--- NOTE | 2019-11-13 18:20 | NUR ---
DISCHARGE NOTE DISCHARGE PACKET AND INSTRUCTIONS GIVEN TO CAREGIVER. ALL BELONGINGS WITH PT. PICC LINE REMOVED, CATHETER INTACT, SCANT BLEEDING. HELD PRESSURE FOR 5 TO 10 MINUTES. ID HOSPITAL BAND REMOVED. PT ESCORTED BY AMBULANCE VIA GURNEY AND CAREGIVER. PT TO BE TAKEN HOME WITH HOME HEALTH.
== END 2019-11-13 18:15 | disposition home health service (06) | DRG 871 ==
LOC: SMU 10-26 12:34
PROVIDERS: ADMIT Internal Medicine; ATTEND Internal Medicine
PROC: 02HV33Z Insertion of Infusion Device into Superior Vena Cava, Percutaneous Approach (ICD-10-PCS; 2019-11-05)
PROC: B548ZZA Ultrasonography of Superior Vena Cava, Guidance (ICD-10-PCS; 2019-11-05)
PROC: 0DC58ZZ Extirpation of Matter from Esophagus, Via Natural or Artificial Opening Endoscopic (ICD-10-PCS; principal; 2019-11-06 07:00)
PROC: 0D748ZZ Dilation of Esophagogastric Junction, Via Natural or Artificial Opening Endoscopic (ICD-10-PCS; 2019-11-06 07:00)
PROC: 0DB58ZX Excision of Esophagus, Via Natural or Artificial Opening Endoscopic, Diagnostic (ICD-10-PCS; 2019-11-07)
PROC: 0D758ZZ Dilation of Esophagus, Via Natural or Artificial Opening Endoscopic (ICD-10-PCS; 2019-11-07)
PROC: 0DC58ZZ Extirpation of Matter from Esophagus, Via Natural or Artificial Opening Endoscopic (ICD-10-PCS; 2019-11-07)
PROC: 0DB68ZX Excision of Stomach, Via Natural or Artificial Opening Endoscopic, Diagnostic (ICD-10-PCS; 2019-11-07)
PROC: 0DB68ZX Excision of Stomach, Via Natural or Artificial Opening Endoscopic, Diagnostic (ICD-10-PCS; 2019-11-08)
PROC: 0DH63UZ Insertion of Feeding Device into Stomach, Percutaneous Approach (ICD-10-PCS; 2019-11-08)
DX: A41.9 Sepsis, unspecified organism (principal); J96.91 Respiratory failure, unspecified with hypoxia; E43 Unspecified severe protein-calorie malnutrition; N39.0 Urinary tract infection, site not specified; N20.1 Calculus of ureter; K22.10 Ulcer of esophagus without bleeding; N20.2 Calculus of kidney with calculus of ureter; N31.9 Neuromuscular dysfunction of bladder, unspecified; M19.90 Unspecified osteoarthritis, unspecified site; F03.90 Unspecified dementia, unspecified severity, without behavioral disturbance, psychotic disturbance, mood disturbance, and anxiety; B96.4 Proteus (mirabilis) (morganii) as the cause of diseases classified elsewhere; K22.2 Esophageal obstruction; K22.8 Other specified diseases of esophagus; T18.128A Food in esophagus causing other injury, initial encounter; X58.XXXA Exposure to other specified factors, initial encounter; K29.70 Gastritis, unspecified, without bleeding; E87.6 Hypokalemia; R13.10 Dysphagia, unspecified; E78.5 Hyperlipidemia, unspecified; Z79.899 Other long term (current) drug therapy; Z79.82 Long term (current) use of aspirin; Z87.442 Personal history of urinary calculi; Z88.0 Allergy status to penicillin; Z88.8 Allergy status to other drugs, medicaments and biological substances; Z74.01 Bed confinement status; Y93.89 Activity, other specified; Y92.89 Other specified places as the place of occurrence of the external cause; Y99.8 Other external cause status
CPT/HCPCS: 36415; 36600; 43247; 71045; 74018; 76770; 80048; 80053; 80170-TC; 80185-TC; 81000-TC; 82803-TC; 82962; 83605; 83735-TC; 84100-TC; 84132-TC; 84478-TC; 85025; 85610-TC; 85730-TC; 86886; 86900; 86901; 87040-TC; 87086; 87186-TC; 88305; 88312; 88313; 92610-GN; 93005; 94640; 94760; 97110-GP; 97116-GP; 97530-GP; C1751; J0610; J0690; J0696; J1165; J1450; J1580; J1815; J1940; J1956; J2250; J2370; J2405; J2704; J2765; J3010; J3370; J3475; J3480; J3490; J7030; J7040; J7050; J7060; J7131; J7613

== ENCOUNTER 2020-11-25 11:09 | Emergency (ER) | payer OTHER, SELFPAY ==
[~2020-11-25] VITALS: Ht 182.9 cm; Wt 104.3 kg
[~2020-11-25 11:09] MED LIST: ASPI-1155 PO; METR500T PO; PHEN100C4 PO; XALEYE BOTH EYES
[2020-11-25 11:20] VITALS: BP_SYST 118
--- NOTE | 2020-11-25 11:20 | NUR ---
Patient to ER bed to gown for evaluation. Side rails up. Report given to Kinsey TREVIÑO
--- NOTE | 2020-11-25 11:22 | NUR ---
PT BIBA FROM HOME FOR G-TUBE FELL OUT OF PLACE SOME TIME AROUND 0800. CAREGIVER IN THE HOME NOTICED. PT ARRIVES AAOX3, V/S STABLE. HX OF DEMENTIA. EMS DOES NOT HAVE MEDICAL HX OF THE PT, PT IS A POOR HISTORIAN. GTUBE SITE IS CLEAN AND DRY. NO REDNESS OR DRAINAGE NOTED.
--- NOTE | 2020-11-25 11:25 | NUR ---
ER DR. DOWNEY WITH PT FOR G-TUBE REPLACEMENT. PT TOLERATED WELL
[2020-11-25] MEDS ORDERED: GASTROGRAFIN 120 ML ONE (11:33)
--- NOTE | 2020-11-25 11:38 | NUR ---
PORTABLE X-RAY AT THE BEDSIDE
[2020-11-25 12:12] VITALS: BP_SYST 118
--- NOTE | 2020-11-25 12:13 | NUR ---
Patient given written and verbal discharge instructions and verbalizes understanding. ER MD discussed with patient the results and treatment provided. Patient in stable condition. ID arm band removed. Patient educated on pain management and to follow up with PMD. Pain Scale 0/10. Opportunity for questions provided and answered. Medication side effect fact sheet provided.
== END 2020-11-25 12:12 | disposition home or self-care (01) ==
LOC: SED 11:09
DX: K94.23 Gastrostomy malfunction (principal); Z88.0 Allergy status to penicillin; Z88.6 Allergy status to analgesic agent; Z79.899 Other long term (current) drug therapy; Z79.82 Long term (current) use of aspirin
CPT/HCPCS: 43762; 74240; 99284; Q9963